=== PATIENT | male | born 1940 | race Caucasian/White ===

== ENCOUNTER 2019-07-29 06:40 | Day surgery (SDC) | payer MEDICARE ==
[2019-07-29] MEDS: TROPICAMIDE 1% OPTH 3 ML BOT ONE ×3 (06:57→07:31)
[2019-07-29] MEDS: KETOROLAC OPTHALMIC 5 ML BOT ONE ×3 (06:57→07:31)
[2019-07-29] MEDS: CYCLOPENTOLATE 2% OPTH 2 ML ONE ×3 (06:57→07:31)
[2019-07-29] MEDS: MOXIFLOXACIN HCL 0.5% 3ML OPTH OPTH ONE ×3 (06:57→07:31)
[2019-07-29] MEDS: PHENYLEPHRINE 10% OPTH 5ML ONE ×3 (06:57→07:31)
[2019-07-29] MEDS ORDERED: Ringers Lactate 1,000 ML IV ONE (07:15)
[2019-07-29] MEDS ORDERED: FENTANYL CITR 100 MCG/2 ML ONE (07:16)
[2019-07-29] MEDS ORDERED: LIDOCAINE 1% MPF 5 ML VIAL ONE (07:16)
[2019-07-29] MEDS ORDERED: PROPOFOL 200 MG/20 ML VIAL IV ONE (07:16)
[2019-07-29] MEDS ORDERED: ALBUTEROL 2.5 MG/3 ML NEB SOL ONE (07:26)
[2019-07-29] MEDS ORDERED: TOBRADEX 0.3-0.1% OPTH OINTMENT ONE (07:26)
[2019-07-29] MEDS ORDERED: EPINEPHRINE/PF 1 MG/ML AMP ONE (07:28)
[2019-07-29] MEDS ORDERED: BSS OPTHALMIC SOL 15 ML BOT OPTH ONE (07:28)
[2019-07-29] MEDS ORDERED: BALANCED SALT IRRIG PLAIN 500 ML BTL IRR ONE (07:28)
[2019-07-29] MEDS ORDERED: POVIDONE-IODINE 5% EYE DROPS ONE (07:29)
[2019-07-29] MEDS ORDERED: DUOVISC 1 KIT OPTH ONE ×2 (07:29→08:13)
[2019-07-29] MEDS ORDERED: ONDANSETRON 4 MG/2 ML VIAL ONE (08:29)
[2019-07-29 09:44] VITALS: BP 138/65; TEMP 97.2; O2SAT 96
--- NOTE | 2019-07-29 19:43 | OP ---
Date of Procedure: 07/29/2019 Surgeon: Scott Wynne MD Preoperative Diagnosis: Visually significant cataract, left eye. Postoperative Diagnosis: Visually significant cataract, left eye. Procedure Performed: Cataract extraction of left eye with placement of intraocular lens. Description Of Procedure: After being properly identified in the preoperative holding area, patient was taken back to the operating room where a time-out was performed. He was then placed under genera l anesthesia. Due to patient's severe scoliosis and neck stenosis, he was unable to be laid flat fortunato n after being anesthetized. Therefore, an extensive neck roll was placed underneath the patient kamlesh galvez approximately 18 inches with the forehead and head then taped to the bed and then the bed placed in reverse Trendelenburg. This still resulted in the patient's head being parallel and still signif icantly superior to the rest of his body, but was in such a manner that allowed the cataract surgery to proceed safely. Patient was thereafter prepped and draped in normal sterile fashion. Grasping th e globe with a pair of 0.12 forceps and a paracentesis wound was made inferiorly and the anterior tico mber filled with Viscoat. Then using a 2.75 mm keratome, a triplanar incision was made for main phac o entry. A continuous curvilinear capsulorrhexis was created using a cystotome and completed with Ut rata forceps. Followed by hydrodissection and hydrodelineation of the lens resulting in his free rot ation. The lens was thereafter removed in a standard divide and conquer technique at approximately 1 0 seconds CDE time. Additional viscoelastic was added and the nucleus disassembled. Total CDE was 1 5.54. Once all 4 quadrants had been removed, the phaco handpiece was exchanged for irrigation aspira tion handpiece and all cortical material was removed and the capsule polished. The intraocular lens, Lonny model SN60WF, power 18.0 diopter, serial #[id number] was loaded inside the cartridge and then implanted into the eye after the eye was filled with additional viscoelastic. Once the lens had bee n inserted, the irrigation aspiration handpiece was used to remove the remaining viscoelastic. Hanhi te having a triplane configuration of the temporal wound architecture, the temporal iris did prolapse on repressurization of the eye, and therefore a single 10-0 nylon suture was placed through the woun d in order to act as additional safety. The globe was thereafter repressurized and the drapes remove d and the patient pressure patched over TobraDex ointment. He was taken to the postoperative holding area in stable condition having tolerated the procedure well. There were no complications. Estimated Blood Loss: None. Specimens: No specimens were sent. Drains: No drains were placed. Implants: Implants are as above. Followup: Patient is to follow up with myself, Dr. Scott Wynne, at the [facility] t omorrow morning. MARINO/VANNESSAL Voice ID: [id number] Report ID: [id number]
== END 2019-07-29 09:47 | disposition home or self-care (01) ==
LOC: OR 06:40
PROVIDERS: ATTEND Ophthalmology
PROC: 08RK3JZ Replacement of Left Lens with Synthetic Substitute, Percutaneous Approach (ICD-10-PCS; principal; 2019-07-29 07:30)
DX: H26.8 Other specified cataract (principal); J44.9 Chronic obstructive pulmonary disease, unspecified; M19.90 Unspecified osteoarthritis, unspecified site
CPT/HCPCS: 66984; J2704; J0171; J3010; J7120; J2405

== ENCOUNTER 2019-08-12 06:25 | Day surgery (SDC) | payer MEDICARE ==
[2019-08-12] MEDS ORDERED: CYCLOPENTOLATE 2% OPTH 2 ML ONE (06:46)
[2019-08-12] MEDS ORDERED: KETOROLAC OPTHALMIC 5 ML BOT ONE (06:46)
[2019-08-12] MEDS ORDERED: PHENYLEPHRINE 10% OPTH 5ML ONE (06:47)
[2019-08-12] MEDS ORDERED: Ringers Lactate 1,000 ML IV ONE (06:47)
[2019-08-12] MEDS ORDERED: MOXIFLOXACIN HCL 0.5% 3ML OPTH OPTH ONE (06:47)
[2019-08-12] MEDS ORDERED: propofoL 200 MG/20 ML VIAL IV ONE (07:06)
[2019-08-12] MEDS ORDERED: FENTANYL CITR 100 MCG/2 ML ONE (07:06)
[2019-08-12] MEDS ORDERED: TROPICAMIDE 1% OPTH 3 ML BOT ONE (07:07)
[2019-08-12] MEDS ORDERED: ONDANSETRON 4 MG/2 ML VIAL ONE (07:07)
[2019-08-12] MEDS ORDERED: dexAMETHasone 4 MG/ML VIAL ONE (07:07)
[2019-08-12] MEDS ORDERED: LIDOCAINE 2% MPF 5 ML VIAL ONE (07:07)
[2019-08-12] MEDS ORDERED: BSS OPTHALMIC SOL 15 ML BOT OPTH ONE (07:07)
[2019-08-12] MEDS ORDERED: HYALURONATE SODIUM 14 MG/ML SYR OPTH ONE (07:08)
[2019-08-12] MEDS ORDERED: BALANCED SALT IRRIG PLAIN 500 ML BTL IRR ONE (07:08)
[2019-08-12] MEDS ORDERED: TOBRADEX 0.3-0.1% OPTH OINTMENT ONE (07:08)
[2019-08-12] MEDS ORDERED: EPINEPHRINE/PF 1 MG/ML AMP ONE (07:08)
[2019-08-12] MEDS ORDERED: DUOVISC 1 KIT OPTH ONE (07:08)
[2019-08-12] MEDS ORDERED: POVIDONE-IODINE 5% EYE DROPS ONE (07:16)
[2019-08-12] MEDS ORDERED: EPHEDRINE SULF 50 MG/ML VIAL ONE (08:23)
[2019-08-12 10:30] VITALS: BP 132/76; TEMP 98; O2SAT 97
--- NOTE | 2019-08-12 20:48 | OP ---
Date of Procedure: 08/12/2019 Surgeon: Scott Wynne MD Preoperative Diagnosis: Visually significant cataract, right eye. Postoperative Diagnosis: Visually significant cataract, right eye. Procedure Performed: Cataract extraction right eye with placement of intraocular lens, right eye und er general anesthesia. Description Of Procedure: After being properly identified in the preoperative holding, the patient w as taken back to the operating room where a time-out was performed. The patient was then positioned in the bed because of his severe scoliosis. Approximately 18 to 20 inches of towels were required un derneath his head as a head roll on top of the normal headrest, which was then taped into position an d then a significant amount of Trendelenburg was required as well. Once the patient was so positione d, we prepped and draped the patient as normal. Because of the extreme amount of Trendelenburg and p osition of the head, I was unable to operate the phaco foot controls with my right foot is normal and therefore had to operate using my left foot, however, no complications resulted from this. Other th an that, the case proceeded in the standard manner. The paracentesis wound was created both in the 1 2 o'clock and 6 o'clock position using a 1.0 mm blade and the anterior chamber filled with Viscoat, t hen grasping the globe with a pair of 0.12 forceps, the main phaco incision wound was made temporally using a 2.75 mm keratome. A continuous curvilinear capsulorrhexis was created using a cystotome and completed with Utrata forceps. Hydrodissection and hydrodelineation were carried out resulting in f ree rotation of the lens nucleus. The lens was thereafter removed in a standard divide and conquer t echnique again being extremely careful using my left foot, but no problems were encountered. Once al l 4 quadrants had been removed, the phaco handpiece was exchanged for bimanual irrigation aspiration handpieces and the remainder of the cortex and epinuclear shell were removed. Once this had been don e, the capsular bag was inflated with additional viscoelastic and the Lonny lens model SN60WF, power 18.5 diopter, serial #[id number] was implanted into the capsular bag. The haptics were left at the 3 and 9 o'clock position and viscoelastic was removed using the irrigation aspiration handpiece. Bec ause of the tendency for the iris prolapse through the incision wound, a single 10-[address] through the main incision wound. The wounds were then hydrated. Again, a small leak superiorly ne cessitated an additional suture at the 12 o'clock paracentesis. Once these 2 sutures were placed, th e globe was again tested for water tightness and the lid speculum and drapes removed and the procedur e concluded. The patient was taken to the postoperative holding area in stable condition having tole rated procedure well. There were no complications. Estimated Blood Loss: None. Specimens: No specimens were sent. Drains: No drains were placed. Implants: Are as above. JPG/MODL Voice ID: [id number] Report ID: [id number]
== END 2019-08-12 10:25 | disposition home or self-care (01) ==
LOC: OR 06:25
PROVIDERS: ATTEND Ophthalmology
PROC: 08RJ3JZ Replacement of Right Lens with Synthetic Substitute, Percutaneous Approach (ICD-10-PCS; principal; 2019-08-12 07:30)
DX: H25.11 Age-related nuclear cataract, right eye (principal)
CPT/HCPCS: 66984; J2704; J0171; J3010; J7120; J2405

== ENCOUNTER 2020-04-24 08:47 | Emergency (ER) | payer MEDICARE, SELFPAY ==
--- OUTSIDE RECORDS SUMMARY | 2020-04-24 09:34 | XMS REPORT | Encounter Summary ---
:1940 Author Care Team Providers Name Role Phone Dr. Lance Bal Primary Care Provider [phone] Lance Bal Jr, MD Primary Care Provider [phone] Reason for Visit Hypercholesterolemia; Mild chronic obstr uctive pulmonary disease; COPD Follow-up; Telemedicine Visit Instructions 1. Hypercholesterolemia 2. Mild chronic obstructive pulm onary disease 3. Osteoarthritis 4. Chronic obstructive lung dise ase COPD Education (VFP) 5. Cigarette smoker advised to quit smoking stopping smoking: care ins tructions deciding about using medic [facility] to quit smoking Discussion Note Completed a telephone visit with idania gautam. Patient report he has enough meds currently and does not need any refills. Patient encouraged to wash hands frequently for 20 seconds, practice social distancin g by stay home and maintaining physical space in public. Patient encouraged to seek medical care if he starts having continues cough, fever and sob. Patient verbalized understanding. Keon Fonseca caregiver [phone]. Plan of Care Reminders Provider Appointments Home on or around Olivia Visit 30 05/04/2020 [facility] None recorded. Referral None recorded. Procedures None recorded. Surgeries None recorded. Imaging None recorded. Medications Name Start Date atorvastatin 40 mg tablet Take 1 tablet every day by oral route. furosemide 20 mg tablet Take 1 tablet every day by oral route. omeprazole 40 mg capsule,delayed release Take 1 capsule every day by oral route. tamsulosin 0.4 mg capsule Take 1 capsule every day by oral route. Medications Administered None recorded. Vitals Height 5 ft 11 in Results Lab Results None recorded. Allergies Code Code System Name Reaction Severity Status Onset NKDA Problems Name Status Onset Date Source Hypercholesterolemia Active 12/21/2019 Mild Chronic Obstructive Pulmonary Disease Active 12/20 Osteoarthritis Active 01/31/2020 Procedures Date Name Performed by Prostatectomy Information not avai lable Prosthetic Arthroplasty of Bilateral Hip s Information not available Vaccine List None recorded. Social History Tobacco Smoking Status Heavy Tobacco Smoker (1 1/2 PPD) Past Encounters 01/31/2020 Hypercholesterolemia; Mild Chronic Obstr uctive Pulmonary Disease; Osteoarthritis; Chronic Obstructive Lung Disease; Cigarette Smoker Olivia Correa, [employer]: [address], [address], [place] [address], Ph. History of Present Illness COPD Initial / Follow Up Reported By: Patient HPI:: Quality: no cough, no shortn ess of breath, no wheezing. COPD Severity and Treatment: COPD Assessme nt Test Score: Less than 10, Acute hospital admissions for COPD in last year: 0, COPD exacerbations in last year: 0. Context: courses of systemic steroids in last year: 0, ED visits for COPD in last year: 0, does p atient use rescue inhaler as prescribed? no, does patient take daily COPD medications as prescribed? No, does patient have trouble affordi ng COPD medications? No, sees a tube fitter no, enrolled i n pulmonary rehabilitation no Note: I confirm that I received verbal consent from the patient for the virtual visit.
This telemedicine encounter was performed using live {{video and audio|audio only because either patient did not have technology or unable to connect due to technical problems*}}.
<b>(for audio only)</b> Total time spent with patient: {{15#| }} minutes. Review of Systems Comprehensive General Adult ROS Reported By: Patient Constitutional: Constitutional: no fever, no night sweats, no significant weight gain, no significant weight loss, no exercise intolerance Eyes: Eyes: no dry eyes, no vision change, no irritation ENMT: Ears: no difficulty hearing, no ear pain. Nose: no frequent nosebleeds, no nose problems , no sinus problems. Mouth/Throat: no sore throat, no bleeding gums, no snoring, no dry mouth, no mouth ulcers, no oral abnorm alities, no teeth problems Cardiovascular: Cardiovascular: no chest mercedes n, no arm pain on exertion, no shortness of breath when wal chau, no shortness of breath when lying down, no palpitations, no known heart murmur, no lightheadedness Respiratory: Respiratory: no cough, no wh eezing, no shortness of breath, no coughing up blood, no sleep apnea Gastrointestinal: Gastrointestinal: no abdomin al pain, no nausea, no vomiting, no constipation, normal appe tite, no diarrhea, not vomiting blood, no dyspepsia, no GERD Genitourinary: Genitourinary: no incontinen ce, no difficulty urinating, no hematuria, no increased freq uency Musculoskeletal: Musculoskeletal: no muscle a ches, no muscle weakness, no arthralgias/joint pain, no b ack pain, no swelling in the extremities Integumentary: Skin: no abnormal mole, no j aundice, no rashes, no laceration Neurologic: Neurologic: no loss of consc iousness, no weakness, no numbness, no seizures, no di zziness, no migraines, no headaches, no tremor Psychiatric: Psych: no depression, no sle ep disturbances, feeling safe in a relationship, no alcohol abu se, no anxiety, no hallucinations, no suicidal thoughts Endocrine: Endocrine: no fatigue Hematologic/Lymphatic: Hematologic/Lymphatic no swo llen glands, no bruising, no excessive bleeding Allergic/Immunologic: Allergy/Immunologic: no runn y nose, no sinus pressure, no itching, no hives, no freque nt sneezing Physical Exam Telemedicine/Virtual Visit Reported By: Patient Constitutional: Level of Distress: NAD. Ambu lation: ; patient use cane Psychiatric: Insight: good judgement"
--- OUTSIDE RECORDS SUMMARY | 2020-04-24 09:34 | XMS REPORT | Summary of Care ---
:1940 Author Organization [facility] Address [address] [place] [address] Care Team Providers Name Role Phone Lance Bal Primary Care Provider Reason for Visit Reason Comments Results Encounter Details Date Type Department Care Team Description 02/03/2020 Telephone [facility] Cardiology- Aby Harris MD Results [place] [address] [facility] [address] [facility], [address] [place] [address] [place] [address] [phone] Allergies No Known Allergiesdocumented as of this encounter (statuses as of 02/03/2020) Medications Medication Sig Dispensed Refills Start Date End Date Status aspirin 81 mg EC tablet Take 1 tablet by 0 9 Active mouth daily. TAMSULOSIN 0.4 mg 24 hr TAKE 1 CAPSULE 30 capsule 1 12/22/2018 Active capsuleIndications: BPH BY MOUTH EVERY with obstruction/lower DAY urinary tract symptoms traMADOL 50 mg Take 1 tablet by 8 tablet 0 12/29/2018 Active tabletIndications: mouth every 8 Benign prostatic (eight) hours as hyperplasia with needed for Pain urinary obstruction (scale 7-10). acetaminophen 500 mg Take 1 tablet by 20 tablet 0 12/29/2018 Active tabletIndications: mouth every 8 Benign prostatic (eight) hours as hyperplasia with needed for Pain. urinary obstruction atorvastatin 40 mg Take 1 tablet by 60 tablet 3 11/18/2019 Active tabletIndications: PAD mouth daily. (peripheral artery disease) FUROSEMIDE 20 mg tablet TAKE 1 TABLET BY 90 tablet 1 0 Active MOUTH EVERY DAY documented as of this encounter (statuses as of 02/03/2020) Active Problems Problem Noted Date Urinary retention 11/27/2018 Overview: Added automatically from request for bhavya chau [id number] Benign prostatic hyperplasia with urinary obstruction 10/12/2018 Overview: Added automatically from request for bhavya chau [id number] documented as of this encounter (statuses as of 02/03/2020) Immunizations Name Administration Dates Next Due Influenza High Dose 08/31/2019 documented as of this encounter Social History Tobacco Use Types Packs/Day Years Used Date Current Every Day Smoker 1 65 Smokeless Tobacco: Never Used Alcohol Use Drinks/Week oz/Week Comments Yes Sex Assigned at Date Recorded Not on file Job Start Date Occupation Industry Not on file Not on file Not on file Travel History Travel Start Travel End No recent travel history available. documented as of this encounter Last Filed Vital Signs Not on filedocumented in this encounter Plan of Treatment Date Type Specialty Care Team Description 05/09/2020 Office Visit Urology Josefina Ahumada, [employer] [address] [facility] [address] [place] [address] [phone] 09/04/2020 Office Visit Cardiology Adithya Harris M D [address] [facility] [address] [place] [address] Health Maintenance Due Date Last Done Comments DTaP,Tdap,and Td Vaccines (1 - Tdap) 1951 Zoster Recombinant Vaccine (SHINGRIX) (1 of 2) 1990 LUNG CANCER SCREEN: Recommended for age 55-80 with 30 1995 + pack year history Medicare Wellness Visit 2005 PNEUMOCOCCAL VACCINES 65+ (1 of 2 - PCV13) 2005 Depression Screening 11/02/2020 11/03/2019 INFLUENZA VACCINE Completed 08/31/2019 documented as of this encounter Results Not on filedocumented in this encounter Insurance Payer Benefit Plan / Subscriber ID Effective Dates Phone Addre ss Type Group [employer] MARGIE HANSON [id number] 2019-Presen Medicare Adv PLUS PLUS t HMO CLASSIC/VALUE documented as of this encounter
--- OUTSIDE RECORDS SUMMARY | 2020-04-24 09:34 | XMS REPORT | Summary of Care ---
:1940 Author Organization [facility] Address [address] [place] [address] Care Team Providers Name Role Phone Lance Bal Primary Care Provider Reason for Visit Reason Comments ULTRASOUND (Routine) Status Reason Specialty Diagnoses / Referred By Referred To Procedures Contact Contact Closed Vascular Surgery Diagnoses PAD (peripheral artery disease) Adithya Harris MD Procedures [facility] [address] [place] [address] [address] [place] [address] Encounter Details Date Type Department Care Team Description 01/28/2020 Wire Web Worker Visit [facility] Adithya Harris MD [address] [place] [address] [address] [place] [address] PAD (peripheral Cardiology- [facility] Vascular Room 1 - artery disease) [address] [place] [address], [address] [place] [address] Allergies No Known Allergiesdocumented as of this encounter (statuses as of 01/28/2020) Medications Medication Sig Dispensed Refills Start Date [...] as of this encounter (statuses as of 01/28/2020) Active Problems Problem Noted Date Urinary retention 11/27/2018 Overview: Added automatically from request for bhavya kandi [id number] Benign prostatic hyperplasia with urinary obstruction 10/12/2018 Overview: Added automatically from request for bhavya kandi [id number] documented as of this encounter (statuses as of 01/28/2020) Immunizations Name Administration Dates Next Due Influenza [...] Description 05/09/2020 Office Visit Urology Josefina Ahumada, [employer] [address] [facility] [address] [place] [address] [phone] 09/04/2020 Office Visit Cardiology Adithya Harris M D [address] [place] [address] [place], [place] [address] [phone] Health Maintenance Due Date Last Done Comments [...] Results Not on filedocumented in this encounter Visit Diagnoses Diagnosis PAD (peripheral artery disease) Unspecified disorders of arteries and ar terioles documented in this encounter Insurance Payer Benefit Plan / Subscriber ID Effective Dates Phone Addre ss Type Group [facility] MARGIE HANSON [id number] 2019-Presen Medicare Adv PLUS PLUS t HMO CLASSIC/VALUE documented as of this encounter
--- NOTE | 2020-04-24 10:54 | RAD REPORT ---
EXAM DESCRIPTION: RAD - Humerus Right - 04/24/2020 10:13 am CLINICAL HISTORY: Right arm pain status post fall FINDINGS: An impacted right humeral neck fracture. No dislocation
--- NOTE | 2020-04-24 10:56 | RAD REPORT ---
EXAM DESCRIPTION: RAD - Hip Left 2 View - 04/24/2020 10:13 am CLINICAL HISTORY: Left hip pain status post injury FINDINGS: No fracture or dislocation is seen. 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
--- NOTE | 2020-04-24 11:04 | EDPHYS ---
Physician Documentation [facility] Name: Juan Gracia Jr Age: 80 yrs Sex: Male : 1940 Arrival Date: 04/24/2020 Time: 08:53 Bed 14 Private MD: ED Physician Andre Garcia HPI: 04/24 10:13 This 80 yrs old Male presents to ER via EMS with complaints of Fall Injury. rn 10:13 Details of fall: The patient fell from an upright position. Onset: The symptoms/episode rn began/occurred just prior to arrival. Associated injuries: The patient sustained right shoulder. Severity of symptoms: At their worst the symptoms were mild, in the emergency department the symptoms are unchanged. The patient has not experienced similar symptoms in the past. Reports walking back to room after using bathroom this AM, missed edge of bed while sitting, reports fell onto right shoulder and is area of pain. No head injury. No LOC, remembers all events. Reports left hip hurts all the time, but more sore today after fall, doesn't feel broken like in past. . Historical: - Allergies: 08:55 No Known Allergies; jr10 - Immunization history:: Adult Immunizations up to date. - Social history:: Smoking status: unknown. - Family history:: not pertinent. - Hospitalizations: : No recent hospitalization is reported. ROS: 10:13 Constitutional: Negative for fever, chills, and weight loss, Eyes: Negative for injury, rn pain, redness, and discharge, Neck: Negative for injury, pain, and swelling, Cardiovascular: Negative for chest pain, palpitations, and edema, Respiratory: Negative for shortness of breath, cough, wheezing, and pleuritic chest pain, Abdomen/GI: Negative for abdominal pain, nausea, vomiting, diarrhea, and constipation, Back: Negative for injury and pain, MS/Extremity: + rigt shoulder and left hip pain Skin: Negative for injury, rash, and discoloration, Neuro: Negative for headache, weakness, numbness, tingling, and seizure. Exam: 10:13 Constitutional: This is a well developed, well nourished patient who is awake, alert, rn and in no acute distress. Head/Face: Normocephalic, atraumatic. Eyes: Periorbital areas with no swelling, redness, or edema. Chest/axilla: Normal chest wall appearance and motion. Nontender with no deformity. No lesions are appreciated. Cardiovascular: Regular rate and rhythm. No pulse deficits. Respiratory: No increased work of breathing, no retractions or nasal flaring. Abdomen/GI: soft, non-tender Back: No spinal tenderness. No costovertebral tenderness. Full range of motion. MS/ Extremity: Pulses equal, no cyanosis. Neurovascular intact. + swelling and tenderness right proximal humerus, no open wounds. + mild pain with active and passive ROM left hip. Neuro: Awake and alert, GCS 15, oriented to person, place, and situation. Cranial nerves II-XII grossly intact. Motor strength 4/5 in all extremities. Sensory grossly intact. Vital Signs: 08:53 BP 122 / 80; Pulse 101; Resp 20; Temp 98.2; Pulse Ox 99% on R/A; Pain 8/10; jr10 10:07 BP 137 / 72; Pulse 92; Resp 18; Pulse Ox 98% on R/A; jr10 11:20 BP 105 / 74; Pulse 97; Resp 18; Pulse Ox 100% on R/A; Pain 0/10; jr10 Efe Coma Score: 09:00 Eye Response: spontaneous(4). Verbal Response: oriented(5). Motor Response: obeys jr10 commands(6). Total: 15. Trauma Score (Adult): 09:00 Eye Response: spontaneous(1); Verbal Response: oriented(1); Motor Response: obeys jr10 commands(2); Systolic BP: > 89 mm Hg(4); Respiratory Rate: 10 to 29 per min(4); Efe Score: 15; Trauma Score: 12 MDM: 09:05 Patient medically screened. rn 11:01 Differential diagnosis: contusion, fracture. Data reviewed: vital signs, nurses notes, rn radiologic studies, plain films, and as a result, I will discharge patient. Counseling: I had a detailed discussion with the patient and/or guardian regarding: the historical points, exam findings, and any diagnostic results supporting the discharge/admit diagnosis, radiology results, the need for outpatient follow up, to return to the emergency department if symptoms worsen or persist or if there are any questions or concerns that arise at home. Response to treatment: the patient's symptoms have mildly improved after treatment, and as a result, I will discharge patient. Special discussion: I discussed with the patient/guardian in detail that at this point there is no indication for admission to the hospital. It is understood, however, that if the symptoms persist or worsen the patient needs to return immediately for re-evaluation. Based on the history and exam findings, there is no indication for further emergent testing or inpatient evaluation. I discussed with the patient/guardian the need to see the orthopedic surgeon for further evaluation of the symptoms. 04/24 09:12 Order name: XRAY Hip LEFT 2 view; Complete Time: 11: rn 04/24 09:12 Order name: XRAY Humerus RIGHT; Complete Time: 11: rn 04/24 09:54 Order name: Sling; Complete Time: 10:19 rn Administered Medications: 11:20 Drug: [place] 5 mg-325 mg 1 tabs Route: PO; jr10 11:34 Follow up: Response: No adverse reaction jr10 11:20 Drug: Motrin 800 mg Route: PO; jr10 11:34 Follow up: Response: No adverse reaction jr10 Disposition: 04/24/20 11:03 Discharged to Home. Impression: Displaced transverse fracture of shaft of humerus, right arm. - Condition is Stable. - Discharge Instructions: Humerus Fracture Treated With Immobilization, How to Use a Sling. - Prescriptions for Tylenol- Codeine #3 300-30 mg Oral Tablet - take 1 tablet by ORAL route every 6 hours As needed; 15 tablet. - Medication Reconciliation Form, Thank You Letter, Antibiotic Education, Prescription Opioid Use form. - Follow up: Rodrick Alston MD; When: 5 - 6 days; Reason: Recheck today's complaints, Re-evaluation by your physician. - Problem is new. - Symptoms have improved. Signatures: Dispatcher [employer] EDMS Andre Garcia MD MD rn Rivera, Jessica, RN RN jr10 Corrections: (The following items were deleted from the chart) 11:45 11:03 04/24/2020 11:03 Discharged to Home. Impression: Displaced transverse fracture of jr10 shaft of humerus, right arm. Condition is Stable. Forms are Medication Reconciliation Form, Thank You Letter, Antibiotic Education, Prescription Opioid Use. Follow up: Dr. Rodrick Alston; When: 5 - 6 days; Reason: Recheck today's complaints, Re-evaluation by your physician. Problem is new. Symptoms have improved. rn
--- NOTE | 2020-04-24 11:04 | ER ---
Nurse's Notes [facility] Name: Juan Gracia Jr Age: 80 yrs Sex: Male : 1940 Arrival Date: 04/24/2020 Time: 08:53 Bed 14 Private MD: Diagnosis: Displaced transverse fracture of shaft of humerus, right arm Presentation: 04/24 08:53 Chief complaint: Patient states: pt presents via EMS with c/o right shoulder pain s/p jr10 mechanical fall at approx 0100 this morning; moderate swelling not right arm with decreased ROM. Coronavirus screen: Client denies travel out of the [place] in the last 14 days. At this time, the client does not indicate any symptoms associated with coronavirus-19. Ebola Screen: No symptoms or risks identified at this time. Initial Sepsis Screen: Does the patient meet any 2 criteria? No. Patient's initial sepsis screen is negative. Does the patient have a suspected source of infection? No. Patient's initial sepsis screen is negative. Risk Assessment: Do you want to hurt yourself or someone else? Patient reports no desire to harm self or others. Onset of symptoms was April 24, 2020. 08:53 Method Of Arrival: EMS jr10 08:53 Acuity: FELICIA 3 jr10 Historical: - Allergies: 08:55 No Known Allergies; jr10 - Immunization history:: Adult Immunizations up to date. - Social history:: Smoking status: unknown. - Family history:: not pertinent. - Hospitalizations: : No recent hospitalization is reported. Screenin:57 Abuse screen: Denies threats or abuse. Denies injuries from another. Nutritional jr10 screening: No deficits noted. Tuberculosis screening: No symptoms or risk factors identified. Fall Risk Fall in past 12 months (25 points). No secondary diagnosis (0 pts). No IV (0 pts). Ambulatory Aid- Crutches/Cane/Walker (15 pts). Gait- Weak (10 pts.). Mental Status- Oriented to own ability (0 pts). Primary Survey: 09:00 NO uncontrolled hemorrhage observed. Breathing/Chest: Respiratory pattern: regular, jr10 Respiratory effort: spontaneous, unlabored, Chest inspection: symmetrical rise and fall of the chest. Circulation: Pulses: palpable bilateral radial, brachial, femoral, popliteal, posterior tibial and and dorsalis pedis arteries.. Disability Alert. Exposure/Environment: All clothing and personal items were removed. Secondary Survey: 09:00 Musculoskeletal: Range of motion: limited in right shoulder Swelling present in jr10 anterior aspect of right shoulder, right bicep and posterior aspect of right shoulder. Assessment: 08:55 Pain: Complains of pain in anterior aspect of right shoulder, right bicep and posterior jr10 aspect of right shoulder Pain currently is 8 out of 10 on a pain scale. Quality of pain is described as aching, Pain began at approx 0100 this AM Is continuous, Aggravated by increased activity. Neuro: No deficits noted. Level of Consciousness is awake, alert, obeys commands, Oriented to person, place, time, situation, Appropriate for age. Cardiovascular: No deficits noted. Respiratory: No deficits noted. Airway is patent Respiratory effort is even, unlabored, Respiratory pattern is regular, symmetrical. GI: No deficits noted. No signs and/or symptoms were reported involving the gastrointestinal system. : No deficits noted. No signs and/or symptoms were reported regarding the genitourinary system. EENT: No deficits noted. No signs and/or symptoms were reported regarding the EENT system. Derm: Bruising that is dark purple, on anterior aspect of right shoulder. Musculoskeletal: Circulation, motion, and sensation intact. Capillary refill < 3 seconds, Range of motion: limited in right shoulder Swelling present in anterior aspect of right shoulder, right bicep and posterior aspect of right shoulder. Vital Signs: 08:53 BP 122 / 80; Pulse 101; Resp 20; Temp 98.2; Pulse Ox 99% on R/A; Pain 8/10; jr10 10:07 BP 137 / 72; Pulse 92; Resp 18; Pulse Ox 98% on R/A; jr10 11:20 BP 105 / 74; Pulse 97; Resp 18; Pulse Ox 100% on R/A; Pain 0/10; jr10 Efe Coma Score: 09:00 Eye Response: spontaneous(4). Verbal Response: oriented(5). Motor Response: obeys jr10 commands(6). Total: 15. Trauma Score (Adult): 09:00 Eye Response: spontaneous(1); Verbal Response: oriented(1); Motor Response: obeys jr10 commands(2); Systolic BP: > 89 mm Hg(4); Respiratory Rate: 10 to 29 per min(4); Efe Score: 15; Trauma Score: 12 ED Course: 08:53 Patient arrived in ED. jr10 08:54 Triage completed. jr10 08:55 Arm band placed on. jr10 08:57 Patient has correct armband on for positive identification. Placed in gown. Bed in low jr10 position. Call light in reach. Side rails up X2. Pulse ox on. NIBP on. 08:58 No provider procedures requiring assistance completed. jr10 09:05 Andre Garcia MD is Attending Physician. rn 09:13 Isabelle Bateman, [place] is Primary Nurse. jr10 10:13 XRAY Hip LEFT 2 view In Process Unspecified. EDMS 10:13 XRAY Humerus RIGHT In Process Unspecified. EDMS 10:19 Patient did not have IV access during this emergency room visit. jr10 10:19 Sling \T\ swathe to right arm. jr10 11:02 Rodrick Alston MD is Referral Physician. rn Administered Medications: 11:20 Drug: [place] 5 mg-325 mg 1 tabs Route: PO; jr10 11:34 Follow up: Response: No adverse reaction jr10 11:20 Drug: Motrin 800 mg Route: PO; jr10 11:34 Follow up: Response: No adverse reaction jr10 Output: 11:00 Urine: 250ml (Voided); Total: 250ml. jr10 Outcome: 11:03 Discharge ordered by . rn 11:43 Discharged to home via wheelchair. jr10 11:43 Condition: improved 11:43 Discharge instructions given to patient, Instructed on discharge instructions, follow up and referral plans. Demonstrated understanding of instructions, follow-up care, medications, Prescriptions given X 1. 11:45 Patient left the ED. jr10 Signatures: Dispatcher [employer] EDMS Andre Garcia MD MD rn Rivera, Jessica, RN RN jr10
[2020-04-24] MEDS ORDERED: HYDROCODONE/APAP 5/325 MG TAB ONE (11:24)
[2020-04-24] MEDS ORDERED: IBUPROFEN 400 MG TAB ONE (11:24)
[2020-04-27 07:24] VITALS: TEMP 98.2
[2020-04-27 07:26] VITALS: BP 105/74; O2SAT 100
== END 2020-04-24 11:45 | disposition home or self-care (01) ==
LOC: ER 08:47
DX: S42.321A Displaced transverse fracture of shaft of humerus, right arm, initial encounter for closed fracture (principal); M25.552 Pain in left hip; W06.XXXA Fall from bed, initial encounter; Y93.89 Activity, other specified; Y92.9 Unspecified place or not applicable
CPT/HCPCS: 99284

== ENCOUNTER 2021-05-23 16:56 | Inpatient (IN) | payer OTHER ==
[2021-05-23] MEDS ORDERED: Ringers Lactate 1,000 ML IV ONE ×2 (17:35→18:30)
--- NOTE | 2021-05-23 17:49 | RAD REPORT ---
EXAM DESCRIPTION: RAD - Chest Single View - 05/23/2021 5:36 pm CLINICAL HISTORY: DYSPNEA Chest pain. COMPARISON: CHEST SINGLE VIEW dated 04/13/2013; CHEST SINGLE VIEW dated 06/27/2010 FINDINGS: Portable technique limits examination quality. Moderate opacification of the right hemithorax is noted likely a combination of airspace consolidatio n/pneumonia and pleural effusion. The left lung is grossly clear. The heart is upper limit of normal in size.
[2021-05-23 17:51] LABS: Protime INR 1.29
[2021-05-23 17:52] LABS: Absolute Lymphocytes (CBC) 1.4 K/uL (0.7-4.9); Basophils % 0.1 % (0-1.3); Hematocrit 38.1 % (39.6-49.0); Lymphocytes % 3.3 % (15.3-44.8); MPV 8.6 fL (7.6-11.3); RBC Red Blood Cell Count 4.51 M/uL (4.33-5.43)
[2021-05-23 18:03] LABS: ALT/SGPT 15 U/L (12-78); AST/SGOT 18 U/L (15-37); Albumin 2.4 g/dL (3.4-5.0); Alkaline Phosphatase 79 U/L (45-117); BUN Blood Urea Nitrogen 17 mg/dL (7-18); Bicarbonate 28 mmol/L (21-32); Bilirubin Direct 0.7 mg/dL (0-0.2); Bilirubin Total 1.2 mg/dL (0.2-1.0); Glucose Level 124 mg/dL (74-106); Magnesium 1.5 mg/dL (1.8-2.4); NT PRO-BNP 1497 pg/mL (<450); Protein, Total 7.2 g/dL (6.4-8.2); Sodium Level 142 mmol/L (136-145); Thyroid Stimulating Hormone 0.603 uIU/mL (0.360-3.740); Troponin (Emerg Dept Use Only) 0.04 ng/mL (0.0-0.045)
[2021-05-23 18:05] LABS: Urine Blood 1+ (Negative); Urine Glucose Negative (Negative); Urine Protein 1+ (Negative); Urine Specific Gravity 1.025 (1.005-1.030)
[2021-05-23 18:19] LABS: Urine Bacteria <20 /HPF (NONE SEEN); Urine RBC <5 /HPF (NONE SEEN)
[2021-05-23] MEDS ORDERED: CEFTRIAXONE 1000 MG/VIAL ONE (18:29)
[2021-05-23] MEDS ORDERED: Levofloxacin 750mg IV 750 MG/150 ML BAG IV ONE (18:30)
[2021-05-23] MEDS ORDERED: METOPROLOL TARTRATE 5 MG/5 ML INJ IV ONE (18:30)
--- NOTE | 2021-05-23 18:34 | ER ---
Nurse's Notes [facility] Name: Juan Gracia Jr Age: 81 yrs Sex: Male : 1940 Arrival Date: 05/23/2021 Time: 16:56 Bed 27 Private MD: Diagnosis: Severe sepsis with septic shock;Pneumonia, unspecified organism;Hypomagnesemia;Supraventricular tachycardia Presentation: 05/23 17:02 Chief complaint: EMS states: toned out for generalized weakness. Family reports pt is ld1 no longer able to take care of himself, not eating and incontinent X 2 days. Coronavirus screen: At this time, the client does not indicate any symptoms associated with coronavirus-19. Ebola Screen: No symptoms or risks identified at this time. Initial Sepsis Screen: Does the patient meet any 2 criteria? RR > 20 per min. HR > 90 bpm. Yes Does the patient have a suspected source of infection? No. Patient's initial sepsis screen is negative. Risk Assessment: Do you want to hurt yourself or someone else? Patient reports no desire to harm self or others. Onset of symptoms was May 23, 2021. 17:02 Method Of Arrival: EMS: [facility] ld1 17:02 Acuity: FELICIA 3 ld1 Triage Assessment: 17:05 General: Appears in no apparent distress. uncomfortable, Behavior is calm, cooperative, ld1 appropriate for age. Pain: Denies pain. EENT: No signs and/or symptoms were reported regarding the EENT system. Neuro: Level of Consciousness is awake, alert, obeys commands, Oriented to person, place, time, situation, Appropriate for age. Cardiovascular: Capillary refill < 3 seconds Patient's skin is warm and dry. Rhythm is SVT. Respiratory: Airway is patent Respiratory effort is even, unlabored, Respiratory pattern is regular, symmetrical. GI: Abdomen is flat, non-distended. GI: Parent/caregiver reports the patient having intolerance of food, intolerance of fluids. : Reports incontinence. Derm: No signs and/or symptoms reported regarding the dermatologic system. Musculoskeletal: No signs and/or symptoms reported regarding the musculoskeletal system. 17:05 General: Smells of Pt was brought by EMS. Upon arrival pt smelt of urine and feces. ld1 Brief was disintegrating, appeared to have been on pt for several days. Pt claimed caregiver takes care of him at home. Due to pt dirty brief, raw skin was noted on buttocks. . Historical: - Allergies: 17:05 No Known Allergies; ld1 - Home Meds: 17:05 aspirin 81 mg Oral cpDR [Active]; furosemide 40 mg/5 mL (8 mg/mL) Oral soln [Active]; ld1 Flomax 0.4 mg Oral cap [Active]; omeprazole 10 mg Oral cpDR [Active]; Iron CR Oral [Active]; atorvastatin 10 mg oral tab [Active]; - PMHx: 17:05 None; ld1 - PSHx: 17:05 None; ld1 - Immunization history:: Adult Immunizations up to date. - Social history:: Smoking status: Patient denies any tobacco usage or history of. Screenin:12 Abuse screen: Denies threats or abuse. Denies injuries from another. Nutritional ld1 screening: No deficits noted. Tuberculosis screening: No symptoms or risk factors identified. Fall Risk None identified. Assessment: 17:12 Reassessment: See triage assessment. ld1 17:46 Reassessment: Patient appears in no apparent distress at this time. Patient and/or ld1 family updated on plan of care and expected duration. Pain level reassessed. Patient is alert, oriented x 3, equal unlabored respirations, skin warm/dry/pink. 18:36 Reassessment: Patient appears in no apparent distress at this time. Patient and/or ld1 family updated on plan of care and expected duration. Pain level reassessed. Patient denies pain at this time. 19:15 Reassessment: Pt is resting in bed with eyes closed, IV fluids are infusing without jb4 difficulty. Respirations are even and unlabored. 20:15 Reassessment: Patient appears in no apparent distress at this time. Patient and/or jb4 family updated on plan of care and expected duration. Pain level reassessed. Patient is alert, oriented x 3, equal unlabored respirations, skin warm/dry/pink. 21:15 Reassessment: Pt is resting in bed with eyes closed, respirations are even and jb4 unlabored with no s/s of pain or distress noted. 22:15 Reassessment: Patient appears in no apparent distress at this time. No changes from jb4 previously documented assessment. Patient and/or family updated on plan of care and expected duration. Pain level reassessed. Vital Signs: 17:02 BP 107 / 58; Pulse 131; Resp 22; Temp 98.9(TE); Pulse Ox 88% on R/A; Weight 54.43 kg; ld1 Height 6 ft. 1 in. (185.42 cm); Pain 0/10; 17:46 BP 135 / 64; Pulse 159; Resp 22; Pulse Ox 98% on 3 lpm NC; ld1 18:36 BP 118 / 57; Pulse 89; Resp 20; Pulse Ox 99% on 3 lpm NC; Pain 0/10; ld1 19:33 BP 112 / 66; Pulse 93; Resp 20; Pulse Ox 100% ; ea 20:30 BP 94 / 52; Pulse 104; Resp 18; Pulse Ox 100% on 3 lpm NC; jb4 21:30 BP 101 / 67; Pulse 108; Resp 20; Pulse Ox 99% on 3 lpm NC; jb4 22:30 BP 79 / 57; Pulse 111; Resp 20; Pulse Ox 93% on 3 lpm NC; jb4 22:45 BP 92 / 47; Pulse 100; Resp 21; Pulse Ox 98% on 3 lpm NC; jb4 17:02 Body Mass Index 15.83 (54.43 kg, 185.42 cm) ld1 22:30 Hospitalist notified, see MAR for orders. jb4 ED Course: 16:56 Patient arrived in ED. ds1 17:05 Triage completed. ld1 17:05 Arm band placed on left wrist. ld1 17:12 [facility] jr8 17:12 Lebron Ochoa MD is Attending Physician. jr8 17:12 Patient has correct armband on for positive identification. Placed in gown. Bed in low ld1 position. Call light in reach. Side rails up X2. doormaker on. Pulse ox on. NIBP on. Door closed. Noise minimized. Warm blanket given. 17:12 No provider procedures requiring assistance completed. ld1 17:15 Inserted saline lock: 20 gauge in right upper arm, using aseptic technique. Blood ss collected. 17:[address] [facility] 17:25 Initial lab(s) drawn, by ED staff, sent to lab. EKG done, by ED staff, reviewed by Jonathan NELSON. 17:[address] [facility] 17:26 Lactate Sent. 5 17:26 Blood Culture Adult ([address]) Sent[address] [facility] 17:26 Basic Metabolic Panel Sent. [facility] 17:26 CBC with Diff Sent. [facility] 17:[address] [facility] 17:[address] [facility] 17:27 NT PRO-BNP Sent. [facility] 17:27 PT-INR Sent. [facility] 17:27 Troponin (emerg Dept Use Only) Sent. mh 17:30 Chiu cath inserted, using sterile technique, 18 Fr., by wv, balloon inflated, to ld1 gravity drainage, urine specimen collected. 17:36 XRAY Chest (1 view) In Process Unspecified. EDMS 18:03 Urine Microscopic Only Sent. ld1 18:31 Pedro Pablo Caruso DO is Hospitalizing Provider. jr8 18:50 CT Chest Wo Con In Process Unspecified. EDMS 21:30 Patient admitted, IV remains in place. jb4 23:06 Alea Metzger RN is Primary Nurse. ea 05/26 10:04 Primary Nurse role handed off by Alea Metzger RN tw5 10:04 Maranda Morton is Primary Nurse. tw5 05/28 06:55 Primary Nurse role handed off by Maranda Morton bd 07:17 Belen Pemberton, [place] is Primary Nurse. oh 19:58 Primary Nurse role handed off by Belne Pemberton, [place] tt3 05/30 07:09 Hill Her, [place] is Primary Nurse. ch5 Administered Medications: 05/23 17:21 Drug: Ringers - Lactated Ringers Solution 1000 ml Route: IV; Rate: bolus; Site: right ld1 antecubital; 05/25 23:15 Follow up: IV Status: Completed infusion bs2 05/23 18:05 Drug: Lopressor (metoprolol) 5 mg Route: IVP; Site: right antecubital; ld1 18:10 Drug: Lopressor (metoprolol) 5 mg Route: IVP; Site: right antecubital; ld1 18:15 Drug: Lopressor (metoprolol) 5 mg Route: IVP; Site: right antecubital; ld1 18:34 Follow up: Response: No adverse reaction ld1 18:15 Drug: Rocephin (cefTRIAXone) 1 grams Route: IV; Rate: calculated rate; Site: right ld1 antecubital; 18:33 Follow up: Response: No adverse reaction; IV Status: Completed infusion; IV Intake: [id number] 18:33 Drug: LevaQUIN (levofloxacin) 750 mg Volume: 150 ml; Route: IVPB; Infused Over: 90 ld1 mins; Site: right antecubital; 20:03 Follow up: Response: No adverse reaction; IV Status: Completed infusion; IV Intake: jb4 150ml 18:33 Drug: Ringers - Lactated Ringers Solution 1000 ml Route: IV; Rate: bolus; Site: right ld1 antecubital; 19:30 Follow up: Response: No adverse reaction; IV Status: Completed infusion; IV Intake: jb4 1000ml 20:40 Drug: Magnesium Sulfate 2 grams Route: IVPB; Infused Over: 2 hrs; Site: right ea antecubital; 22:40 Follow up: Response: No adverse reaction; IV Status: Completed infusion; IV Intake: jb4 200ml 22:45 Drug: NS 0.9% 500 ml Route: IV; Rate: bolus; Site: left antecubital; jb4 05/25 23:14 Follow up: IV Status: Completed infusion bs2 22:30 Drug: Heparin (DVT/PE Drip) 18 units/kg/hr - (HEParin 68652 units, D5W 500 ml) bs2 {Co-Signature: kcLee Ann (Makenna Fofana.} Route: IV; Rate: 18 mcg/kg/min; Site: right upper arm; 05/26 04:55 Follow up: Rate change 1100 units/hr; 3,000 unit bolus given per last PTT draw, rate bs2 increased to 1100 units per hour Intake: 05/23 18:33 IV: 10ml; Total: 10ml. ld1 19:30 IV: 1000ml; Total: 1010ml. jb4 20:03 IV: 150ml; Total: 1160ml. jb4 22:40 IV: 200ml; Total: 1360ml. jb4 Outcome: 18:32 Decision to Hospitalize by Provider. jr8 22:57 Admitted to ER Hold. Please see [facility] for further documentation. jb4 22:57 Condition: stable 22:57 Discharge instructions given to patient, Instructed on the need for admit, Demonstrated understanding of instructions. 06/02 21:11 Patient left the ED. em Signatures: Dispatcher [employer] EDMS Desire Villafuerte French Moslye, RN RN em Shania Mayorga ds1 Elsi Reese, [place] RN Jonathan Treviño PA PA jr8 Hilton Verduzco RN RN jb4 Ariana Walls [facility] Alea Metzger, RN RN Junaid Gannon tt3 Stella Starkey RN RN ld1 Kandice Kaur RN RN bs2 Hill Her, RN RN 5 Belen Pemberton RN RN oh Wood, Tiffany 5 Makenna Farr kc4 Corrections: (The following items were deleted from the chart) 05/23 17:31 17:26 T4 FREE+C.LAB.BRZ drawn and sent. [facility] EDMS 17:31 17:26 THYROID STIMULAT HORMONE+C.LAB.BRZ drawn and sent. [facility] EDMS 19:44 19:05 CORONAVIRUS+MR.LAB.BRZ drawn and sent. ld1 EDMS 22:57 20:30 BP 94 / 52; Pulse 104bpm; Resp 18bpm; Pulse Ox 100% RA; jb4 jb4 22:57 21:30 BP 101 / 67; Pulse 108bpm; Resp 20bpm; Pulse Ox 99% RA; jb4 jb4 05/26 05:13 10 22:30 Heparin (DVT/PE Drip) 18 units/kg/hr - (HEParin 94093 units, D5W 500 ml) IV bs2 at 18 mcg/kg/min in PICC bs2 05/26 05:13 05:11 Rate change 3000 bolus bs2 bs2
--- NOTE | 2021-05-23 18:34 | EDPHYS ---
Physician Documentation [facility] Name: Juan Gracia Jr Age: 81 yrs Sex: Male : 1940 Arrival Date: 05/23/2021 Time: 16:56 Bed 27 Private MD: ED Physician Lebron Ochoa HPI: 05/23 18:26 This 81 yrs old Male presents to ER via EMS with complaints of General jr8 Weakness. 18:26 This is an 81-year-old male patient is brought in by EMS after family had called for jr8 general weakness and decline in state. Family stated that he is no longer able to take care of himself and that he had had a decrease in eating and drinking habits as well. Patient currently without any significant complaint at this time. Severity of symptoms: At their worst the symptoms were moderate in the emergency department the symptoms are unchanged. It is unknown whether or not the patient has had similar symptoms in the past. The patient has not recently seen a physician. Historical: - Allergies: 17:05 No Known Allergies; ld1 - Home Meds: 17:05 aspirin 81 mg Oral cpDR [Active]; furosemide 40 mg/5 mL (8 mg/mL) Oral soln [Active]; ld1 Flomax 0.4 mg Oral cap [Active]; omeprazole 10 mg Oral cpDR [Active]; Iron CR Oral [Active]; atorvastatin 10 mg oral tab [Active]; - PMHx: 17:05 None; ld1 - PSHx: 17:05 None; ld1 - Immunization history:: Adult Immunizations up to date. - Social history:: Smoking status: Patient denies any tobacco usage or history of. ROS: 18:26 Eyes: Negative for injury, pain, redness, and discharge, ENT: Negative for injury, jr8 pain, and discharge, Neck: Negative for injury, pain, and swelling, Cardiovascular: Negative for chest pain, palpitations, and edema, Respiratory: Negative for shortness of breath, cough, wheezing, and pleuritic chest pain, Abdomen/GI: Negative for abdominal pain, nausea, vomiting, diarrhea, and constipation, Back: Negative for injury and pain, MS/Extremity: Negative for injury and deformity, Skin: Negative for injury, rash, and discoloration, Neuro: Negative for headache, numbness, tingling, and seizure. 18:26 Constitutional: Positive for fatigue, malaise. Exam: 18:26 ENT: Nares patent. No nasal discharge, no septal abnormalities noted. Oropharynx with jr8 no redness, swelling, or masses, exudates, or evidence of obstruction, uvula midline. Mucous membranes dry. Neck: Trachea midline, no thyromegaly or masses palpated, and no cervical lymphadenopathy. Supple, full range of motion without nuchal rigidity, or vertebral point tenderness. No Meningismus. 18:26 Skin: Warm, dry with normal turgor. Normal color with no rashes, no lesions, and no evidence of cellulitis. MS/ Extremity: Pulses equal, no cyanosis. Neurovascular intact. Full, normal range of motion. Neuro: Awake and alert, GCS 15, oriented to person, place, time, and situation. Motor strength 5/5 in all extremities. Sensory grossly intact. 18:26 Constitutional: The patient appears alert, awake, frail, smells of urine, unkempt. 18:26 Cardiovascular: Rate: tachycardic, Rhythm: irregular, Pulses: Pulses are 2+ in right radial artery and left radial artery. Heart sounds: normal, normal S1and S2, no S3 or S4, no murmur, no rub, no gallop, Edema: is not appreciated. 18:26 Respiratory: the patient does not display signs of respiratory distress, Respirations: tachypnea, that is mild, Breath sounds: decreased breath sounds, that are mild, are heard in the right upper lobe and right middle lobe, rhonchi, that are mild, are heard in the right upper lobe and right middle lobe. Vital Signs: 17:02 BP 107 / 58; Pulse 131; Resp 22; Temp 98.9(TE); Pulse Ox 88% on R/A; Weight 54.43 kg; ld1 Height 6 ft. 1 in. (185.42 cm); Pain 0/10; 17:46 BP 135 / 64; Pulse 159; Resp 22; Pulse Ox 98% on 3 lpm NC; ld1 18:36 BP 118 / 57; Pulse 89; Resp 20; Pulse Ox 99% on 3 lpm NC; Pain 0/10; ld1 19:33 BP 112 / 66; Pulse 93; Resp 20; Pulse Ox 100% ; ea 20:30 BP 94 / 52; Pulse 104; Resp 18; Pulse Ox 100% on 3 lpm NC; jb4 21:30 BP 101 / 67; Pulse 108; Resp 20; Pulse Ox 99% on 3 lpm NC; jb4 22:30 BP 79 / 57; Pulse 111; Resp 20; Pulse Ox 93% on 3 lpm NC; jb4 22:45 BP 92 / 47; Pulse 100; Resp 21; Pulse Ox 98% on 3 lpm NC; jb4 17:02 Body Mass Index 15.83 (54.43 kg, 185.42 cm) ld1 22:30 Hospitalist notified, see MAR for orders. jb4 MDM: 17:12 Patient medically screened. jr8 18:26 Data reviewed: vital signs, nurses notes, lab test result(s), EKG, radiologic studies, jr8 plain films. Data interpreted: Pulse oximetry: on room air is 88 %. Interpretation: hypoxia. Counseling: I had a detailed discussion with the patient and/or guardian regarding: the historical points, exam findings, and any diagnostic results supporting the discharge/admit diagnosis, lab results, radiology results, the need for further work-up and treatment in the hospital. 06/02 18:14 ED course: Dr. bee requested intubation despite ABG looking ok, normal CO2. rn Evaluated patient and pt watching basketball game, waving, wide awake, and comfortable. Given GCS 15, normal mental status, comfortable on BIPAP, ABG, will not currently intubate as cannot be justified at this time.. 18:31 ED course: Spoke with Dr. Bee, and insistent on intubation due to PO2 of 55 and rn for safety of patient for transport. Consulted with Dr. Huff, decision made to intubate for safety of patient during transport. . 18:48 ED course: In evaluating patient for intubation, patient with severe kyphosis and rn unable to obtain good positioning for intubation. Patient very stiff neck and in flexed position with the inability to extend neck. Anticipate difficult airway due to positioning. We facetimed with Dr. Bee to show him situation and states if we can transport with BiPAP or CPAP with 100% and EMS comfortable then we can hold off on intubation currently. Entire time patient wide-awake and asking what we were doing and answering all questions. Current O2 saturation 92%. 05/23 17:13 Order name: Basic Metabolic Panel; Complete Time: 18:24 8 05/23 17:13 Order name: CBC with Diff; Complete Time: 21:49 8 05/23 17:13 Order name: LFT's; Complete Time: 18:24 8 05/23 17:13 Order name: Magnesium; Complete Time: 18:24 8 05/23 17:13 Order name: NT PRO-BNP; Complete Time: 18:24 [facility] 05/23 17:13 Order name: PT-INR; Complete Time: 18:00 [facility] 05/23 17:13 Order name: Troponin (emerg Dept Use Only); Complete Time: 18:24 8 05/23 17:17 Order name: Blood Culture Adult (2); Complete Time: 17:53 [facility] 05/23 17:17 Order name: Lactate; Complete Time: 17:58 [facility] 05/23 17:17 Order name: Procal; Complete Time: 18:24 [facility] 05/23 17:21 Order name: Urine Microscopic Only; Complete Time: 18:24 [facility] 05/23 17:31 Order name: T4 Free; Complete Time: 18:24 [facility] 05/23 17:31 Order name: Thyroid Stimulating Hormone; Complete Time: 18:24 [facility] 05/23 18:05 Order name: Urine Dipstick-Ancillary; Complete Time: 18:24 [facility] 05/23 20:47 Order name: SARS-COV-2 RT PCR; Complete Time: 21:09 [facility] 05/23 21:48 Order name: Manual Differential; Complete Time: 21:49 MS 05/24 03:33 Order name: Lactate Sepsis 2 HR Follow-up; Complete Time: 06:13 EDMS 05/24 04:11 Order name: CBC with Automated Diff; Complete Time: 06:13 EDMS 05/24 05:01 Order name: Comprehensive Metabolic Panel; Complete Time: 06:13 EDMS 05/24 05:02 Order name: Lipid Profile; Complete Time: 06:13 EDMS 05/24 05:02 Order name: Magnesium; Complete Time: 06:13 EDMS 05/24 05:02 Order name: Thyroid Stimulating Hormone; Complete Time: 06:13 EDMS 05/25 04:27 Order name: CBC with Automated Diff; Complete Time: 08:02 EDMS 05/25 04:37 Order name: Comprehensive Metabolic Panel; Complete Time: 08:02 EDMS 05/25 04:37 Order name: Magnesium; Complete Time: 08:02 EDMS 05/25 11:53 Order name: Vancomycin Level Trough; Complete Time: 12:02 EDMS 05/25 20:16 Order name: Protime (+INR); Complete Time: 10:57 EDMS 05/25 20:16 Order name: PTT, Activated Partial Thromb; Complete Time: 10:57 EDMS 05/26 02:50 Order name: CBC with Automated Diff; Complete Time: 10:57 EDMS 05/26 02:58 Order name: PTT, Activated Partial Thromb; Complete Time: 10:57 EDMS 05/26 03:07 Order name: Comprehensive Metabolic Panel; Complete Time: 10:57 EDMS 05/26 03:07 Order name: Magnesium; Complete Time: 10:57 EDMS 05/26 10:49 Order name: PTT, Activated Partial Thromb; Complete Time: 10:57 EDMS 05/26 14:56 Order name: PTT, Activated Partial Thromb; Complete Time: 10:57 EDMS 05/26 18:24 Order name: PTT, Activated Partial Thromb; Complete Time: 10:57 EDMS 05/27 00:32 Order name: Vancomycin Level Trough; Complete Time: 10:57 EDMS 05/27 00:46 Order name: PTT, Activated Partial Thromb; Complete Time: 10:57 EDMS 05/27 05:16 Order name: PTT, Activated Partial Thromb; Complete Time: 10:57 EDMS 05/27 05:22 Order name: CBC with Automated Diff; Complete Time: 10:57 EDMS 05/27 05:35 Order name: Comprehensive Metabolic Panel; Complete Time: 10:57 EDMS 05/27 05:35 Order name: Magnesium; Complete Time: 10:57 EDMS 05/27 09:38 Order name: PTT, Activated Partial Thromb; Complete Time: 10:57 EDMS 05/27 13:14 Order name: ABG Arterial Blood Gas; Complete Time: 10:57 EDMS 05/28 05:08 Order name: CBC with Automated Diff; Complete Time: 10:57 EDMS 05/28 05:31 Order name: Comprehensive Metabolic Panel; Complete Time: 10:57 EDMS 05/28 05:31 Order name: Phosphorus; Complete Time: 10:57 EDMS 05/28 05:31 Order name: Magnesium; Complete Time: 10:57 EDMS 10/05 05:08 Order name: CBC with Automated Diff; Complete Time: 16:02 EDMS 05/29 05:28 Order name: Comprehensive Metabolic Panel; Complete Time: 16:02 EDMS 05/29 05:28 Order name: Phosphorus; Complete Time: 16:02 EDMS 05/29 05:28 Order name: Magnesium; Complete Time: 16:02 EDMS 05/29 23:51 Order name: Vancomycin Level Trough; Complete Time: 16:02 EDMS 05/30 05:06 Order name: CBC with Automated Diff; Complete Time: 16:02 EDMS 05/30 05:35 Order name: Comprehensive Metabolic Panel; Complete Time: 16:02 EDMS 05/30 05:35 Order name: Phosphorus; Complete Time: 16:02 EDMS 05/30 05:35 Order name: Magnesium; Complete Time: 16:02 EDMS 05/30 07:16 Order name: Manual Differential; Complete Time: 16:02 EDMS 05/31 06:05 Order name: Comprehensive Metabolic Panel; Complete Time: 16:04 EDMS 05/31 06:05 Order name: Phosphorus; Complete Time: 16:04 MS 05/23 17:13 Order name: XRAY Chest (1 view); Complete Time: 17:58 05/23 17:13 Order name: EKG; Complete Time: 17:13 05/23 17:13 Order name: Cardiac monitoring; Complete Time: 17:13 05/23 17:13 Order name: EKG - Nurse/Tech; Complete Time: 17:20 05/23 17:13 Order name: IV Saline Lock; Complete Time: 17:13 05/23 17:13 Order name: Labs collected and sent; Complete Time: 17:13 05/23 17:13 Order name: O2 Per Protocol; Complete Time: 17:13 05/23 17:13 Order name: O2 Sat Monitoring; Complete Time: 17:13 05/23 17:17 Order name: Straight Cath; Complete Time: 18:36 05/23 17:21 Order name: Urine Dipstick-Ancillary (obtain specimen); Complete Time: 18:03 1 05/23 18:31 Order name: CT Chest Wo Con; Complete Time: 19:21 05/24 14:52 Order name: US; Complete Time: 08:02 EDMS 05/25 07:16 Order name: RAD; Complete Time: 08:02 EDMS 05/25 11:30 Order name: RAD; Complete Time: 11:37 EDMS 05/25 15:13 Order name: RAD; Complete Time: 15:39 EDMS 05/26 17:17 Order name: RAD; Complete Time: 10:57 EDMS 05/27 08:31 Order name: RAD; Complete Time: 10:57 EDMS 05/29 14:38 Order name: RAD; Complete Time: 16:02 EDMS 05/31 06:05 Order name: Magnesium; Complete Time: 16:04 EDMS 05/31 06:10 Order name: CBC with Automated Diff; Complete Time: 16:04 EDMS 06/01 06:25 Order name: CBC with Automated Diff; Complete Time: 10:52 EDMS 06/01 06:32 Order name: Comprehensive Metabolic Panel; Complete Time: 10:52 EDMS 06/01 06:32 Order name: Phosphorus; Complete Time: 10:52 EDMS 06/01 06:32 Order name: Magnesium; Complete Time: 10:52 EDMS 06/01 09:04 Order name: RAD; Complete Time: 10:52 EDMS 06/01 11:52 Order name: CORONAVIRUS EDMS 06/01 12:56 Order name: SARS-COV-2 RT PCR; Complete Time: 10:52 EDMS 06/02 04:55 Order name: Basic Metabolic Panel; Complete Time: 10:52 EDMS 06/02 04:55 Order name: Phosphorus; Complete Time: 10:52 EDMS 06/02 04:55 Order name: Magnesium; Complete Time: 10:52 EDMS 06/02 11:45 Order name: Potassium; Complete Time: 10:52 EDMS 06/02 18:21 Order name: ABG Arterial Blood Gas; Complete Time: 10:52 EDMS Administered Medications: 05/23 17:21 Drug: Ringers - Lactated Ringers Solution 1000 ml Route: IV; Rate: bolus; Site: right ld1 antecubital; 05/25 23:15 Follow up: IV Status: Completed infusion bs2 05/23 18:05 Drug: Lopressor (metoprolol) 5 mg Route: IVP; Site: right antecubital; ld1 18:10 Drug: Lopressor (metoprolol) 5 mg Route: IVP; Site: right antecubital; ld1 18:15 Drug: Lopressor (metoprolol) 5 mg Route: IVP; Site: right antecubital; ld1 18:34 Follow up: Response: No adverse reaction ld1 18:15 Drug: Rocephin (cefTRIAXone) 1 grams Route: IV; Rate: calculated rate; Site: right ld1 antecubital; 18:33 Follow up: Response: No adverse reaction; IV Status: Completed infusion; IV Intake: [id number] 18:33 Drug: LevaQUIN (levofloxacin) 750 mg Volume: 150 ml; Route: IVPB; Infused Over: 90 ld1 mins; Site: right antecubital; 20:03 Follow up: Response: No adverse reaction; IV Status: Completed infusion; IV Intake: jb4 150ml 18:33 Drug: Ringers - Lactated Ringers Solution 1000 ml Route: IV; Rate: bolus; Site: right ld1 antecubital; 19:30 Follow up: Response: No adverse reaction; IV Status: Completed infusion; IV Intake: jb4 1000ml 20:40 Drug: Magnesium Sulfate 2 grams Route: IVPB; Infused Over: 2 hrs; Site: right ea antecubital; 22:40 Follow up: Response: No adverse reaction; IV Status: Completed infusion; IV Intake: jb4 200ml 22:45 Drug: NS 0.9% 500 ml Route: IV; Rate: bolus; Site: left antecubital; jb4 05/25 23:14 Follow up: IV Status: Completed infusion bs2 22:30 Drug: Heparin (DVT/PE Drip) 18 units/kg/hr - (HEParin 83459 units, D5W 500 ml) bs2 {Co-Signature: kc4 (Makenna Fofana.} Route: IV; Rate: 18 mcg/kg/min; Site: right upper arm; 05/26 04:55 Follow up: Rate change 1100 units/hr; 3,000 unit bolus given per last PTT draw, rate bs2 increased to 1100 units per hour Disposition Summary: 05/23/21 18:32 Hospitalization Ordered Hospitalization Status: Inpatient Admission jr8 Provider: Pedro Pablo Caruso Condition: Fair jr8 Problem: new jr8 Symptoms: have improved jr8 Bed/Room Type: [facility] Location: [facility] ER HOLD(05/23/21 22:49) la1 Room Assignment: ERHOLD-(05/23/21 22:49) la1 Diagnosis - Severe sepsis with septic shock jr8 - Pneumonia, unspecified organism jr8 - Hypomagnesemia jr8 - Supraventricular tachycardia jr8 Forms: - Medication Reconciliation Form jr8 - SBAR form jr8 Addendum: 06/04/2021 11:04 Co-signature as Attending Physician, Lebron Ochoa MD I agree with the assessment and k dr plan of care. Signatures: Dispatcher [employer] EDMS Lebron Ochoa MD MD kdr Nieto, Roman, MD MD rn Hudson, Jonathan, PA PA jr8 Zully, Kris, CLAIMS ADJUSTOR-C CLAIMS ADJUSTOR-Cla1 Nallely Martinez, RN RN tl1 Hilton Verduzco, RN RN jb4 Alea Metzger RN RN Stella Mcdaniel RN RN ld1 Kandice Kaur RN RN bs2 Makenna Farr kc4 Corrections: (The following items were deleted from the chart) 05/23 17:31 17:18 THYROID STIMULAT HORMONE+C.LAB.BRZ ordered. EDMS EDMS 17:31 17:18 T4 FREE+C.LAB.BRZ ordered. EDMS EDMS 19:44 18:35 CORONAVIRUS+MR.LAB.BRZ ordered. EDMS EDMS 21:37 18:32 jr8 tl1 22:49 18:32 Telemetry/MedSurg (Inpatient) jr8 la1 22:49 21:37 207 tl1 la1
[2021-05-23] MEDS ORDERED: MAGNESIUM SULFATE 1 gm IVPB 2 GM/200 ML BAG IV ONE (19:04)
--- NOTE | 2021-05-23 19:11 | RAD REPORT ---
EXAM DESCRIPTION: CT - Thorax Wo Con CLINICAL HISTORY: Chest pain PAIN COMPARISON: No comparisons FINDINGS: Moderate sized area of airspace consolidation is seen in the right lower lobe with a locul ated moderate right pleural effusion, likely representing pneumonia. Emphysema is present in the left lung. The heart size is normal. Small hiatal hernia is present. No pericardial fluid is seen. Diffuse osteopenia is seen with moderate thoracic degenerative changes. Small stones are present in t he right kidney. 14 mm low-density lesion is present in the right lobe liver, nonspecific. All CT scans are performed using dose optimization technique as appropriate and may include automated exposure control or mA/KV adjustment according to patient size. IMPRESSION: Moderate airspace consolidation in the right lower lobe with loculated right pleural eff usion likely represents pneumonia.
--- NOTE | 2021-05-23 20:34 | P.HP ---
Certification for Inpatient Patient admitted to: Inpatient With expected LOS: >2 Midnights Patient will require the following post-hospital care: None Practitioner: I am a practitioner with admitting privileges, knowledge of patient current condition, hospital course, and medical plan of care. Services: Services provided to patient in accordance with Admission requirements found in Title 42 Section 412.3 of the Code of Federal Regulations Patient History Date of Service: 05/23/21 Primary Care Provider: None Reason for admission: Severe sepsis, pneumonia History of Present Illness: 81-year-old male with GERD, hyperlipidemia, possibly CHF presents emergency department for shortness of breath. Patient reports that he lives at home with a caregiver who is concerned about his wellbeing and had him transported to the emergency department. Patient was hypoxic upon arrival to the emergency department with saturations around 88% on room air and tachycardic with heart rate around 131 and blood pressure of 107/58. Patient was given 30 cc/kg fluid bolus, vital signs improved with heart rate currently 93 blood pre ssure 112/66. Labs were significant for white blood cell count 40.8 hemoglobin 12.4 hematocrit 38.1 lactic acid 3.8 magnesium 1.5T bili 1.2D bili 0.7 BNP 1497 procalcitonin 4.15 Covid test pending chest x-ray demonstrated moderate opacification of the right hemithorax noted likely combination of airspace consolidation/pneumonia and pleural effusion left lung grossly clear heart upper limit of normal in size, CT without contrast of the chest demonstrated moderate airspace consolidation in the right lower lobe with loculated right pleural effusion likely represents pneumonia. Case was discussed with pulmonology recommends for aggressive treatment with IV antibiotics, blood cultures and sputum cultures to be ordered and patient be admitted for further evaluation and management of severe sepsis, pneumonia. Patient oriented x2, not able to tell me the year but seems to be aware of what is going on, reports that he has no family in the area only his caregiver, unable to reach caregiver at this time. Patient wishes for full code. Allergies No Known Allergies Allergy (Verified 08/11/19 10:42) Home Medications: Atorvastatin Calcium 40 mg PO DAILY 07/29/19 Tamsulosin HCl 0.4 mg PO DAILY 07/29/19 Besifloxacin HCl [Besivance] 1 gtt RIGHT EYE BID 08/11/19 Difluprednate [Durezol] 1 gtt RIGHT EYE BID 08/11/19 Nepafenac [Ilevro] 1 gtt RIGHT EYE DAILY 08/11/19 - Past Medical/Surgical History -: BPH -: Hypertension -: CHF? -: right hip repair Psychosocial/ Personal History: Patient lives at home with a caregiverSherry - Family History Family History: Reviewed- Non-Contributory - Social History Smoking Status: Current every day smoker Counseled patient to stop smoking for: less than 10 minutes Smoking therapy provided: No Alcohol use: Yes CD- Drugs: No Caffeine use: Yes Place of Residence: Home Review of Systems 10-point ROS is otherwise unremarkable General: Weakness, Malaise Respiratory: Cough, Shortness of Breath Physical Examination - Physical Exam General: Alert, In no apparent distress, Oriented x2, Disheveled, Other (Ill) HEENT: Atraumatic, Normocephalic, Other (Mucous membranes are dry) Neck: Supple Respiratory: Diminished, Crackles/rales Cardiovascular: Normal pulses, Normal S1 S2 Capillary refill: <2 Seconds Gastrointestinal: Normal bowel sounds, Soft and benign Integumentary: No significant lesion, No tenderness/swelling, No erythema Neurological: Normal speech, Normal tone - Studies Laboratory Data (last 24 hrs) 05/23/21 17:15: PT 14.9 H, INR 1.29 05/23/21 17:15: WBC 40.80 H*, Hgb 12.4 L, Hct 38.1 L, Plt Count 510 H 05/23/21 17:15: Sodium 142, Potassium 4.0, BUN 17, Creatinine 0.72, Glucose 124 H, Magnesium 1.5 L, Total Bilirubin 1.2 H, AST 18, ALT 15, Alkaline Phosphatase 79 Assessment and Plan - Plan Assessment: Severe sepsis secondary to right lower lobe pneumonia with loculated pleural effusion Hypomagnesemia BPH Hyperlipidemia Plan: Severe sepsis secondary to right lower lobe pneumonia with loculated pleural effusion: Case was discussed with pulmonology antibiotics recommended Levaquin/vancomycin blood and sputum cultures and IV fluids. Initial lactic acid 3.8, blood pressure been stable. We will recheck a lactate level. Patient with significant leukocytosis we will check with daily labs. Appreciate further input from pulmonology. Patient reportedly lives with account processor but according to ER staff arrived disheveled, dirty. Will need to evaluate patient's living circumstances. Hypomagnesemia: Magnesium protocol in place, given IV mag in the ER. BPH: Continue home medication Hyperlipidemia: Continue medication DVT PPX: Lovenox Code status: Full Discharge Plan: Home Plan to discharge in: Greater than 2 days - Advance Directives Does patient have a Living Will: No Does patient have a Durable POA for Healthcare: No - Code Status/Comfort Care Code Status Assessed: Yes (Full code) Critical Care: No Time Spent Managing Pts Care (In Minutes): 55
[2021-05-23 21:48] LABS: Blood Morphology Comment NOT SEEN (NOT SEEN); Platelet Estimate INCR
[2021-05-23] MEDS ORDERED: VANCOMYCIN/NS 1 gm 1 GM/250 ML BAG IVPB SCH (22:26)
[2021-05-23] MEDS ORDERED: ONDANSETRON 4 MG/2 ML VIAL IV PRN (22:26)
[2021-05-23] MEDS ORDERED: ACETAMINOPHEN 500 MG TAB PO PRN (22:26)
[2021-05-23] MEDS: NA CHLORIDE 0.9% 1,000 ML IV SCH (22:26)
[2021-05-23] MEDS ORDERED: VANCOMYCIN 1.25 GM in NA CHLORIDE 0.9% 250 ML IVPB ONE (23:00)
[2021-05-23] MEDS ORDERED: NA CHLORIDE 0.9% 500 ML ONE (23:07)
[2021-05-24] MEDS ORDERED: NA CHLORIDE 0.9% 1,000 ML ONE ×2 (00:49→12:21)
[2021-05-24] MEDS ORDERED: NA CHLORIDE 0.9% 250 ML ONE (00:49)
[2021-05-24] MEDS ORDERED: VANCOMYCIN 1 GM/VIAL ONE (00:49)
[2021-05-24 03:54] LABS: Basophils % 0.4 % (0-1.3); Hematocrit 34.8 % (39.6-49.0); Lymphocytes % 6.3 % (15.3-44.8); RBC Red Blood Cell Count 4.12 M/uL (4.33-5.43)
[2021-05-24 04:42] LABS: ALT/SGPT 13 U/L (12-78); AST/SGOT 21 U/L (15-37); Albumin 1.8 g/dL (3.4-5.0); Alkaline Phosphatase 66 U/L (45-117); BUN Blood Urea Nitrogen 14 mg/dL (7-18); Bicarbonate 28 mmol/L (21-32); Bilirubin Total 0.9 mg/dL (0.2-1.0); Glucose Level 103 mg/dL (74-106); HDL Cholesterol 24 mg/dL (40-60); LDL Cholesterol, Calculated 34 (<130); Potassium 3.3 mmol/L (3.5-5.1); Protein, Total 5.8 g/dL (6.4-8.2); Sodium Level 142 mmol/L (136-145); Thyroid Stimulating Hormone 0.669 uIU/mL (0.360-3.740)
--- NOTE | 2021-05-24 06:33 | P.PN ---
Subjective Date of Service: 05/24/21 Primary Care Provider: None Chief Complaint: Severe sepsis, pneumonia Subjective: Other (Patient overall stable. Patient started on IV amiodarone this morning) Physical Examination - Vital Signs Temperature: 98.0 F Blood Pressure: 91/61 Pulse: 115 Respirations: 17 Pulse Ox (%): 95 - Studies Laboratory Data (last 24 hrs) 05/23/21 17:15: PT 14.9 H, INR 1.29 05/23/21 17:15: WBC 40.80 H*, Hgb 12.4 L, Hct 38.1 L, Plt Count 510 H 05/23/21 17:15: Sodium 142, Potassium 4.0, BUN 17, Creatinine 0.72, Glucose 124 H, Magnesium 1.5 L, Total Bilirubin 1.2 H, AST 18, ALT 15, Alkaline Phosphatase 79 Assessment & Plan Discharge Plan: Home Plan to discharge in: Greater than 2 days Physician Review Additional Text: COVID: negative CXR: COMPARISON: CHEST SINGLE VIEW dated 04/13/2013; CHEST SINGLE VIEW dated 06/27/2010 FINDINGS: Portable technique limits examination quality. Moderate opacification of the right hemithorax is noted likely a combination of airspace consolidation/pneumonia and pleural effusion. The left lung is grossly clear. The heart is upper limit of normal in size. CT scan: COMPARISON: No comparisons FINDINGS: Moderate sized area of airspace consolidation is seen in the right lower lobe with a loculated moderate right pleural effusion, likely representing pneumonia. Emphysema is present in the left lung. The heart size is normal. Small hiatal hernia is present. No pericardial fluid is seen. Diffuse osteopenia is seen with moderate thoracic degenerative changes. Small stones are present in the right kidney. 14 mm low-density lesion is present in the right lobe liver, nonspecific. All CT scans are performed using dose optimization technique as appropriate and may include automated exposure control or mA/KV adjustment according to patient size. IMPRESSION: Moderate airspace consolidation in the right lower lobe with loculated right pleural effusion likely represents pneumonia. Physical exam: General: Patient appears disheveled not well kept. HEENT: Atraumatic, Normocephalic, Other (Mucous membranes are dry) Neck: Supple Respiratory: Diminished, Crackles/rales Cardiovascular: Atrial fibrillation rate around 120 Capillary refill: <2 Seconds Gastrointestinal: Normal bowel sounds, Soft and benign Integumentary: Muscle wasting to the upper and lower extremities Neurological: Normal speech, Normal tone Impression: Severe sepsis secondary to right lower lobe pneumonia with loculated pleural effusion Atrial fibrillation with RVR Acute on chronic systolic CHF with ejection fraction 25% with left ventricular thrombus Hypomagnesemia BPH Hyperlipidemia Severe protein malnutrition Plan: Severe sepsis secondary to right lower lobe pneumonia with loculated pleural effusion: Levaquin discontinued due to atrial fibrillation. Will continue with IV cefepime and vancomycin. Patient now with atrial fibrillation with RVR. IV amiodarone started. Case discussed with cardiology this morning. Case discussed again with cardiology this afternoon after echocardiogram showed ejection fraction 25% in left ventricular thrombus noted. Patient on anticoagulation therapyXarelto. After discussion with cardiology will change Xarelto to Lovenox at 1 mg/kg subcu twice daily. Will adjust IV fluids to 50 cc/h. Will need to monitor for heart failure. Spoke with pulmonology at length . Patient needs to continue with antibiotics. Patient may require transfer for cardiovascular surgery for possible VATS but pulmonology wants to continue with current medications at this time. Try to get a hold of family but patient reports no family member. Atrial fibrillation with RVR: Case discussed at length with cardiology this morning. IV amiodarone started. Will change Xarelto to Lovenox at 1 mg/kg subcu twice daily. Chronic systolic CHF with ejection fraction 25% with left ventricular thrombus: Anticoagulation adjusted. Patient needs to be better controlled with his rhythm. Will decrease IV fluids . Will monitor chest x-ray daily. Hypomagnesemia: Electrolyte protocol in place. BPH: Continue with medication Hyperlipidemia: Continue medication Severe protein malnutrition: We will consult dietary. Encourage oral intake. DVT PPX: Lovenox Code status: Full Discharge Plan: Patient may require long-term care in the future. We will need to continue to discuss with patient. Time Spent Managing Pts Care (In Minutes): 55
[2021-05-24] MEDS ORDERED: POTASSIUM CL SA 10 MEQ TAB PO ONE ×2 (07:25→08:13)
[2021-05-24] MEDS ORDERED: PNEUMOCOCCAL VACCINE 0.5 ML IMVAC ONE (08:00)
[2021-05-24] MEDS ORDERED: ENOXAPARIN 40 MG/0.4 ML SQ ONE (08:13)
[2021-05-24] MEDS: CEFEPIME 1 GM/100 ML BAG IV SCH ×2 (08:15→21:00)
[2021-05-24] MEDS: NA CHLORIDE 0.9% 1,000 ML IV SCH ×3 (08:15→15:00)
[2021-05-24] MEDS: AMIODARONE HCL 900 MG in Dextrose 5%-Water 482 ML IV SCH ×2 (08:50→15:01)
[2021-05-24] MEDS ORDERED: ENOXAPARIN 40 MG/0.4 ML SQ SCH (09:00)
[2021-05-24] MEDS ORDERED: Levofloxacin 750mg IV 750 MG/150 ML BAG IV SCH (09:00)
[2021-05-24] MEDS ORDERED: CEFEPIME 1 GM/VIAL IV SCH (09:00)
[2021-05-24] MEDS ORDERED: VANCOMYCIN 1.25 GM in NA CHLORIDE 0.9% 250 ML IV SCH (12:00)
[2021-05-24] MEDS: VANCOMYCIN 1 GM in NA CHLORIDE 0.9% 250 ML IV SCH (12:00)
[2021-05-24] MEDS ORDERED: ARFORMOTEROL TARTRATE 15 MCG/2 ML VIAL.NEB NEB SCH (13:16)
--- NOTE | 2021-05-24 13:16 | P.CNS ---
Date of Consult: 05/24/21 Reason for Consult: Pneumonia Primary Care Provider: None Chief Complaint: Severe sepsis, pneumonia History of Present Illness: AGe 81 AW SOB, R LL pneumonia and locualted R effusion. Denies chest pain fever or chills, Denies alcohol abuse, smoker hypoxic on RA OA / Doing well no complaints, Afib Allergies No Known Allergies Allergy (Verified 08/11/19 10:42) Home Medications: Atorvastatin Calcium 40 mg PO DAILY 07/29/19 Tamsulosin HCl 0.4 mg PO DAILY 07/29/19 Besifloxacin HCl [Besivance] 1 gtt RIGHT EYE BID 08/11/19 Difluprednate [Durezol] 1 gtt RIGHT EYE BID 08/11/19 Nepafenac [Ilevro] 1 gtt RIGHT EYE DAILY 08/11/19 - Past Medical/Surgical History -: BPH -: Hypertension -: CHF? -: right hip repair Psychosocial/ Personal History: Patient lives at home with a caregiverSherry - Social History Smoking Status: Unknown if ever smoked Alcohol use: Yes CD- Drugs: No Caffeine use: Yes Place of Residence: Home Review of Systems 10-point ROS is otherwise unremarkable General: Weakness Respiratory: Shortness of Breath Physical Examination Temp Pulse Resp BP Pulse Ox 98.0 F 105 H 20 104/65 98 05/24/21 13:00 05/24/21 13:00 05/24/21 13:00 05/24/21 13:00 05/24/21 13:00 General: Alert, In no apparent distress, Oriented x3 Neck: Supple Respiratory: Diminished (Diminised on R side with crackles) Cardiovascular: No edema, Normal S1 S2 Laboratory Data (last 24 hrs) 05/23/21 17:15: PT 14.9 H, INR 1.29 05/23/21 17:15: WBC 40.80 H*, Hgb 12.4 L, Hct 38.1 L, Plt Count 510 H 05/23/21 17:15: Sodium 142, Potassium 4.0, BUN 17, Creatinine 0.72, Glucose 124 H, Magnesium 1.5 L, Total Bilirubin 1.2 H, AST 18, ALT 15, Alkaline Phosphatase 79 - Problems (1) Pneumonia Current Visit: Yes Status: Acute Plan: Age 81 AW RLL pneumonia and locualted effusion,septic elevated WBC/ labs reviewed WBC is declinign AW vanc and levaquin, labs reviewed. VS stabel onAmio. CWIVF , nebs/ BP stable/ poss transfer to teritary care facility whenn stabel for vats Qualifiers: Pneumonia type: due to unspecified organism Laterality: right
--- NOTE | 2021-05-24 14:52 | RAD REPORT ---
EXAM DESCRIPTION: US - Chest - 05/24/2021 2:10 pm CLINICAL HISTORY: Pleural effusion COMPARISON: CT May 23, 2021 FINDINGS: Small to moderate loculated right pleural effusion IMPRESSION: Small to moderate loculated right pleural effusion
[2021-05-24] MEDS: NACHLORIDE 0.45% 1,000 ML IV SCH (14:59)
[2021-05-24] MEDS ORDERED: ENOXAPARIN 60 MG/0.6 ML SQ SCH (15:00)
--- NOTE | 2021-05-24 15:23 | CON ---
Date of Consultation: 05/24/2021 Reason For Consultation: Atrial fibrillation. History Of Present Illness: This is an 81-year-old male with history of dyslipidemia, acid reflux, p ersonal history of heart failure, presented to the emergency room with shortness of breath. The marita ent was hypoxic, diagnosed with pneumonia, and sepsis due to that. Had an echocardiogram which I huang her, showed severely depressed LVEF at 25% to 30% and likely a small apical thrombosis present and no other abnormalities. Evaluated him by bedside. He is awake and alert, but confused. Past Medical History: As outlined above in the HPI. Medications: Refer to reconciliation sheet for detailed list. Allergies: NO KNOWN DRUG ALLERGIES. Family History: No premature coronary artery disease or cancer. Social History: Does not smoke or drink. Does not use drugs. Review of Systems: All systems reviewed and they were negative except what mentioned in HPI. Physical Examination: Vital Signs: Reviewed. Head and Neck: Pupils are equal, reactive to light. Intact eye movements. No JVD. No cervical lym phadenopathy. Neck: Supple. Thyroid is not enlarged. Lungs: Rhonchi bilaterally with no accessory muscle use or muscle obstruction. Heart: Irregularly irregular. No extra sounds. Abdomen: Soft, nontender. Bowel sounds positive. No organomegaly. No masses or hernia. No rigidi ty or rebound. Extremities: No clubbing or cyanosis. Intact pulses. Skin: No rash. Neurologic: Alert, awake. No acute focal deficits appreciated. Lymph Nodes: No cervical or axillary lymphadenopathy. Investigations: Creatinine 0.4. NT-ProBNP is 1497. Troponin 0.04. White blood cell count is , hemoglobin is 11.4. The EKG is AFib with rapid ventricular response. Assessment And Recommendations: 1.Atrial fibrillation with rapid ventricular response. Recommend IV amiodarone load with 150 mg ove r 10 minutes, 1 mg/minute for 6 hours, and then 0.5 mg/minute for the reminder of 24 hours. In the i nterim if blood pressure allows, can use metoprolol 5 mg q.1 hour for rate control and blood pressure drops and does not allow on metoprolol, can use 1 dose of digoxin 0.25 mg IV. 2.Likely small left ventricular thrombosis. Please start the patient on IV heparin for therapeutic INR or subcutaneous Lovenox 1 mg/kg subcu q.12 hours to be transitioned to oral once his condition is more stable. 3.Severely depressed systolic heart failure. This could be tachyarrhythmia induced; however, recomm end to trend troponins and if he converts to sinus rhythm, to repeat an echocardiogram and if the EF seems to be low, then recommend a nuclear stress test during this hospital stay. /JÚNIOR Voice ID: [id number] Report ID: [id number]
--- NOTE | 2021-05-24 15:58 | EKG ---
Test Date: 2021-05-23 Test Time: 17:15:01 Extension Forester: CATHY MEASUREMENT RESULTS: Intervals: Rate: 191 IA: QRSD: 66 QT: 228 QTc: 406 [place]: P: IA: QRS: 26 T: 3 INTERPRETIVE STATEMENTS: Supraventricular tachycardia with premature supraventricular complexes Anteroseptal infarct, age undetermined Abnormal ECG Compared to ECG 04/13/2013 08:22:57 Atrial premature complex(es) now present Sinus rhythm no longer present Myocardial infarct finding still present Electronically Signed On 05-24-21 15:56:27 CDT by Abrahan Gutierres
--- NOTE | 2021-05-24 15:58 | EKG ---
Test Date: 2021-05-23 Test Time: 17:19:08 Eight Section Blower: CATHY MEASUREMENT RESULTS: Intervals: Rate: 126 IA: 168 QRSD: 70 QT: 316 QTc: 457 [place]: P: IA: 168 QRS: 16 T: 59 INTERPRETIVE STATEMENTS: Sinus tachycardia with occasional premature ventricular complexes and fusion complexes Anteroseptal infarct, age undetermined Abnormal ECG Compared to ECG 05/23/2021 17:15:01 Fusion complex(es) now present Ventricular premature complex(es) now present Atrial premature complex(es) no longer present Supraventricular tachycardia no longer present Myocardial infarct finding still present Electronically Signed On 05-24-21 15:56:25 CDT by Abrahan Gutierres
--- NOTE | 2021-05-24 15:59 | ECHO ---
HEIGHT: 6 ft 1 in WEIGHT: 119 lb 15.962 oz DATE OF STUDY: 05/24/[address]: Pedro Pablo Caruso DO 2-DIMENSIONAL: YES M.MODE: YES DOPPLER: YES COLOR FLOW: YES TDS: NO PORTABLE: NO DEFINITY: NO BUBBLE STUDY: NO DIAGNOSIS: ATRIAL FIBRILLATION CARDIAC HISTORY: CATHERIZATION: NO SURGERY: NO PROSTHETIC VALVE: NO PACEMAKER: NO MEASUREMENTS (cm) DIASTOLIC (NORMALS) SYSTOLIC (NORMALS) IVSd 1.2 (0.6-1.2) LA Diam 3.3 (1.9-4.0) LVEF 25-30% LVIDd 3.1 (3.5-5.7) LVIDs 2.4 (2.0-3.5) %FS 23% LVPWd 1.3 (0.6-1.2) Ao Diam 2.2 (2.0-3.7) 2 DIMENSIONAL ASSESSMENT: RIGHT ATRIUM: NORMAL LEFT ATRIUM: NORMAL RIGHT VENTRICLE: NORMAL LEFT VENTRICLE: SEVERELY DEPRESSED TRICUSPID VALVE: NORMAL MITRAL VALVE: PULMONIC VALVE: NORMAL AORTIC VALVE: THICKENED, NO PERICARDIAL EFFUSION: NONE AORTIC ROOT: NORMAL LEFT VENTRICULAR WALL MOTION: SEVERE GLOBAL HYPOKINESIS. DOPPLER/COLOR FLOW: SEE BELOW. COMMENTS: SEVERELY DEPRESSED LEFT VENTRICULAR EJECTION FRACTION OF 25-30%. DIASTOLIC DYSFUNCTION. SEVERE GLOBAL HYPOKINESIS. MILD MITRAL REGURGITATION. SMALL APICAL LEFT VENTRICULAR THROMBUS. TECHNOLOGIST: Alina GRIFFITHS
[2021-05-24] MEDS ORDERED: RIVAROXABAN 20 MG TABLET PO SCH (17:00)
[2021-05-24] MEDS ORDERED: VANCOMYCIN/NS 1 gm 1 GM/250 ML BAG IV SCH (17:00)
[2021-05-24] MEDS: ENOXAPARIN 60 MG/0.6 ML SQ SCH (21:00)
[2021-05-24] MEDS: FAMOTIDINE 20 MG TAB PO SCH (21:00)
[2021-05-24] MEDS: FOLIC ACID 1 MG TABLET PO SCH (21:00)
[2021-05-25] MEDS ORDERED: FOLIC ACID 1 MG TABLET ONE ×2 (01:54→08:43)
[2021-05-25] MEDS ORDERED: FAMOTIDINE 20 MG TAB ONE ×2 (01:54→08:43)
[2021-05-25] MEDS ORDERED: VANCOMYCIN 1 GM/VIAL ONE (01:54)
[2021-05-25] MEDS ORDERED: NA CHLORIDE 0.9% 250 ML ONE (01:55)
[2021-05-25] MEDS ORDERED: ENOXAPARIN 60 MG/0.6 ML SQ ONE ×2 (01:55→08:43)
[2021-05-25 04:22] LABS: Absolute Lymphocytes (CBC) 1.9 K/uL (0.7-4.9); Basophils % 0.4 % (0-1.3); Lymphocytes % 8.9 % (15.3-44.8); MPV 9.1 fL (7.6-11.3); RBC Red Blood Cell Count 3.88 M/uL (4.33-5.43)
[2021-05-25 04:37] LABS: ALT/SGPT 23 U/L (12-78); AST/SGOT 42 U/L (15-37); Albumin 1.7 g/dL (3.4-5.0); Alkaline Phosphatase 62 U/L (45-117); BUN Blood Urea Nitrogen 10 mg/dL (7-18); Bicarbonate 20 mmol/L (21-32); Bilirubin Total 0.7 mg/dL (0.2-1.0); Glucose Level 108 mg/dL (74-106); Magnesium 1.9 mg/dL (1.8-2.4); Potassium 3.5 mmol/L (3.5-5.1); Protein, Total 5.6 g/dL (6.4-8.2); Sodium Level 140 mmol/L (136-145)
--- NOTE | 2021-05-25 06:49 | P.PN ---
Subjective Date of Service: 05/25/21 Primary Care Provider: None Chief Complaint: Severe sepsis, pneumonia Subjective: Other (Patient overall stable. Currently on room air. Patient remains on IV amiodarone.) Physical Examination - Vital Signs Temperature: 98.5 F Blood Pressure: 97/63 Pulse: 104 Respirations: 17 Pulse Ox (%): 93 Assessment & Plan Discharge Plan: Transfer Plan to discharge in: Greater than 2 days Physician Review Additional Text: COVID: negative CXR: COMPARISON: CHEST SINGLE VIEW dated 04/13/2013; CHEST SINGLE VIEW dated 06/27/2010 FINDINGS: Portable technique limits examination quality. Moderate opacification of the right hemithorax is noted likely a combination of airspace consolidation/pneumonia and pleural effusion. The left lung is grossly clear. The heart is upper limit of normal in size. CT scan: COMPARISON: No comparisons FINDINGS: Moderate sized area of airspace consolidation is seen in the right lower lobe with a loculated moderate right pleural effusion, likely representing pneumonia. Emphysema is present in the left lung. The heart size is normal. Small hiatal hernia is present. No pericardial fluid is seen. Diffuse osteopenia is seen with moderate thoracic degenerative changes. Small stones are present in the right kidney. 14 mm low-density lesion is present in the right lobe liver, nonspecific. All CT scans are performed using dose optimization technique as appropriate and may include automated exposure control or mA/KV adjustment according to patient size. IMPRESSION: Moderate airspace consolidation in the right lower lobe with loculated right pleural effusion likely represents pneumonia. ECHO: MEASUREMENTS (cm) DIASTOLIC (NORMALS) SYSTOLIC (NORMALS) IVSd 1.2 (0.6-1.2) LA Diam 3.3 (1.9-4.0) LVEF 25-30% LVIDd 3.1 (3.5-5.7) LVIDs 2.4 (2.0-3.5) %FS 23% LVPWd 1.3 (0.6-1.2) Ao Diam 2.2 (2.0-3.7) 2 DIMENSIONAL ASSESSMENT: RIGHT ATRIUM: NORMAL LEFT ATRIUM: NORMAL RIGHT VENTRICLE: NORMAL LEFT VENTRICLE: SEVERELY DEPRESSED TRICUSPID VALVE: NORMAL MITRAL VALVE: PULMONIC VALVE: NORMAL AORTIC VALVE: THICKENED, NO PERICARDIAL EFFUSION: NONE AORTIC ROOT: NORMAL LEFT VENTRICULAR WALL MOTION: SEVERE GLOBAL HYPOKINESIS. DOPPLER/COLOR FLOW: SEE BELOW. COMMENTS: SEVERELY DEPRESSED LEFT VENTRICULAR EJECTION FRACTION OF 25-30%. DIASTOLIC DYSFUNCTION. SEVERE GLOBAL HYPOKINESIS. MILD MITRAL REGURGITATION. SMALL APICAL LEFT VENTRICULAR THROMBUS. Chest US: CLINICAL HISTORY: Pleural effusion COMPARISON: CT May 23, 2021 FINDINGS: Small to moderate loculated right pleural effusion IMPRESSION: Small to moderate loculated right pleural effusion Follow up CXR 05-25-2021: COMPARISON: Chest Single View dated 05/23/2021; CHEST SINGLE VIEW dated 04/13/2013; CHEST SINGLE VIEW dated 06/27/2010 FINDINGS: Lines: None. Lungs: Moderate consolidative airspace disease in the right lung appears modestly worsened. Pleural: Small right effusion. Cardiac: The heart size is within normal limits. Bones: No acute fractures. IMPRESSION: Consolidative airspace disease and pleural effusion in the right lung with mild interval worsening compared with 05/23/2021. Physical exam: General: Patient alert, cooperative. Currently on room air. Patient appears malnourished HEENT: Atraumatic, Normocephalic, Other (Mucous membranes are dry) Neck: Supple Respiratory: Crackles to the right side Cardiovascular: A. fib around 110-120 Capillary refill: <2 Seconds Gastrointestinal: Normal bowel sounds, Soft and benign Integumentary: Muscle wasting to the upper and lower extremities. Patient malnourished Neurological: Normal speech, Normal tone Impression: Severe sepsis secondary to right lower lobe pneumonia with moderate loculated pleural effusion Atrial fibrillation with RVR Acute on chronic combined CHF with ejection fraction 25% with small apical left ventricular thrombus and diastolic dysfunction Hypomagnesemia BPH Hyperlipidemia Severe protein malnutrition Plan: Severe sepsis secondary to right lower lobe pneumonia with moderate loculated pleural effusion: Patient remains on IV cefepime and vancomycin to cover for pneumonia. Patient on room air. Blood cultures pending. Sputum culture pending. Case discussed at length with pulmonology. Patient needs to be transferred for higher level of care evaluation and treatment for VATS/cardiovascular surgery to address moderate loculated pleural effusion. Will arrange for transfer. Patient remains on IV amiodarone for atrial fibrillation with RVR. Patient also on Lovenox at 1 mg/kg subcu twice daily for left ventricular thrombus. Patient remains on IV fluids. Cardiology recommends repeat echocardiogram in the next couple of days to further evaluate. Cardiology also recommends cardiac stress test once medically stable to further evaluate for possible underlying CAD. Case discussed at length with patient. Patient agrees with plan of care. Patient has no family. Will recommend long- term care at final discharge. Atrial fibrillation with RVR: Patient remains on IV amiodarone and Lovenox at 1 mg/kg subcu twice daily. Continue with above recommendations. Acute on chronic combined CHF with ejection fraction 25% with small apical left ventricular thrombus and diastolic dysfunction: Cardiology feels this may be tachyarrhythmia induced. Continue Lovenox at 1 mg/kg subcu twice daily. Continue IV amiodarone. Cardiology recommends to repeat echocardiogram in the next couple of days. Patient will require cardiac stress test to further evaluate his condition. Hypomagnesemia: Electrolyte protocol in place. BPH: Continue with medication Hyperlipidemia: Continue medication Severe protein malnutrition: Dietary to address daily needs. DVT PPX: Lovenox Code status: Full Discharge Plan: Will plan for transfer for higher level of care. Will recommend long-term care at final discharge. Time Spent Managing Pts Care (In Minutes): 55
--- NOTE | 2021-05-25 07:15 | RAD REPORT ---
EXAM DESCRIPTION: RAD - Chest Single View - 05/25/2021 6:42 am CLINICAL HISTORY: penumonia COMPARISON: Chest Single View dated 05/23/2021; CHEST SINGLE VIEW dated 04/13/2013; CHEST SINGLE VIEW dated 06/27/2010 FINDINGS: Lines: None. Lungs: Moderate consolidative airspace disease in the right lung appears modestly worsened. Pleural: Small right effusion. Cardiac: The heart size is within normal limits. Bones: No acute fractures. Other: IMPRESSION: Consolidative airspace disease and pleural effusion in the right lung with mild interval worsening compared with 05/23/2021.
[2021-05-25] MEDS ORDERED: INFLUENZA VACCINE (for 6+ mo) 0.5 ML DOSE IMVAC ONE (08:00)
[2021-05-25] MEDS ORDERED: THIAMINE HCL 100 MG TABLET ONE (08:43)
[2021-05-25] MEDS ORDERED: NACHLORIDE 0.45% 1,000 ML IV ONE (08:43)
[2021-05-25] MEDS ORDERED: NA CHLORIDE 0.9% 0 ML ONE (08:43)
[2021-05-25] MEDS ORDERED: POTASSIUM CL SA 10 MEQ TAB PO ONE (08:45)
[2021-05-25] MEDS: ENOXAPARIN 60 MG/0.6 ML SQ SCH (09:00)
[2021-05-25] MEDS: CEFEPIME 1 GM/100 ML BAG IV SCH (09:00)
[2021-05-25] MEDS: FOLIC ACID 1 MG TABLET PO SCH ×2 (09:00→21:00)
[2021-05-25] MEDS: THIAMINE HCL 100 MG TABLET PO SCH (09:00)
[2021-05-25] MEDS: FAMOTIDINE 20 MG TAB PO SCH ×2 (09:00→21:00)
[2021-05-25] MEDS: NACHLORIDE 0.45% 1,000 ML IV SCH (11:00)
--- NOTE | 2021-05-25 11:29 | RAD REPORT ---
EXAM DESCRIPTION: RAD - Chest Lateral Decubitus - 05/25/2021 11:13 am CLINICAL HISTORY: follow up loculated R Pleural effusion COMPARISON: Chest Single View dated 05/25/2021; Thorax Wo Con dated 05/23/2021 FINDINGS: Severely limited due to positioning and overlapping anatomy. At least some portion of the right pleural effusion is free-flowing. IMPRESSION: Right pleural effusion, at least a portion of which is free-flowing.
[2021-05-25] MEDS: VANCOMYCIN 1 GM in NA CHLORIDE 0.9% 250 ML IV SCH ×3 (12:00)
[2021-05-25] MEDS: ENSURE ENLIVE 237 ML CAN PO SCH ×2 (14:00→21:00)
--- NOTE | 2021-05-25 15:12 | RAD REPORT ---
EXAM DESCRIPTION: RAD - Chest Single View - 05/25/2021 3:00 pm CLINICAL HISTORY: picc line placement COMPARISON: Chest Single View dated 05/25/2021; Chest Single View dated 05/23/2021; CHEST SINGLE VIEW dated 04/13/2013; CHEST SINGLE VIEW dated 06/27/2010 FINDINGS: Portable chest was obtained following placement of a right upper extremity PICC line. The catheter tip projects over the right atrium. Recommend 2-3 cm of retraction for optimum placement.
[2021-05-25 20:15] LABS: Protime INR 1.21
[2021-05-25] MEDS ORDERED: HEPARIN/D5W 25,000 UNIT/500 ML BAG IV ONE (22:54)
[2021-05-26] MEDS: CEFEPIME 1 GM/100 ML BAG IV SCH ×3 (01:45→20:17)
[2021-05-26] MEDS ORDERED: CEFEPIME 1 GM/VIAL ONE ×3 (02:08→20:08)
[2021-05-26] MEDS ORDERED: FAMOTIDINE 20 MG TAB ONE ×2 (02:09→10:34)
[2021-05-26] MEDS ORDERED: FOLIC ACID 1 MG TABLET ONE ×3 (02:09→20:06)
[2021-05-26] MEDS: VANCOMYCIN 1 GM in NA CHLORIDE 0.9% 250 ML IV SCH ×3 (02:09→23:59)
[2021-05-26] MEDS ORDERED: NA CHLORIDE 0.9% 250 ML ONE ×2 (02:09→02:10)
[2021-05-26] MEDS ORDERED: VANCOMYCIN 1 GM/VIAL ONE ×2 (02:09→23:54)
[2021-05-26] MEDS ORDERED: FENTANYL CITR 100 MCG/2 ML IV ONE (02:43)
[2021-05-26 02:48] LABS: Absolute Lymphocytes (CBC) 1.6 K/uL (0.7-4.9); Basophils % 0.1 % (0-1.3); Hematocrit 35.4 % (39.6-49.0); Lymphocytes % 7.7 % (15.3-44.8); MPV 8.8 fL (7.6-11.3); RBC Red Blood Cell Count 4.19 M/uL (4.33-5.43)
[2021-05-26] MEDS ORDERED: FENTANYL CITR 100 MCG/2 ML ONE (03:04)
[2021-05-26 03:07] LABS: ALT/SGPT 31 U/L (12-78); AST/SGOT 44 U/L (15-37); Albumin 1.9 g/dL (3.4-5.0); Alkaline Phosphatase 67 U/L (45-117); BUN Blood Urea Nitrogen 8 mg/dL (7-18); Bicarbonate 22 mmol/L (21-32); Bilirubin Total 0.6 mg/dL (0.2-1.0); Glucose Level 127 mg/dL (74-106); Magnesium 1.7 mg/dL (1.8-2.4); Potassium 3.5 mmol/L (3.5-5.1); Protein, Total 6.1 g/dL (6.4-8.2); Sodium Level 140 mmol/L (136-145)
[2021-05-26] MEDS ORDERED: HEPARIN 5000 UNIT/ML 1 ML VIAL ONE ×2 (05:07→11:34)
--- NOTE | 2021-05-26 06:30 | P.PN ---
Subjective Date of Service: 05/26/21 Primary Care Provider: None Chief Complaint: Severe sepsis, pneumonia Subjective: Other (Patient stable at this time. Patient was requiring 4 L per nasal cannula this morning. Nurse reported around noon time patient requiring high flow then BiPAP.) Physical Examination - Vital Signs Temperature: 97.6 F Blood Pressure: 96/65 Pulse: 108 Respirations: 28 Pulse Ox (%): 90 Assessment & Plan Discharge Plan: Transfer Plan to discharge in: Greater than 2 days Physician Review Additional Text: COVID: negative CXR: COMPARISON: CHEST SINGLE VIEW dated 04/13/2013; CHEST SINGLE VIEW dated 06/27/2010 FINDINGS: Portable technique limits examination quality. Moderate opacification of the right hemithorax is noted likely a combination of airspace consolidation/pneumonia and pleural effusion. The left lung is grossly clear. The heart is upper limit of normal in size. CT scan: COMPARISON: No comparisons FINDINGS: Moderate sized area of airspace consolidation is seen in the right lower lobe with a loculated moderate right pleural effusion, likely representing pneumonia. Emphysema is present in the left lung. The heart size is normal. Small hiatal hernia is present. No pericardial fluid is seen. Diffuse osteopenia is seen with moderate thoracic degenerative changes. Small stones are present in the right kidney. 14 mm low-density lesion is present in the right lobe liver, nonspecific. All CT scans are performed using dose optimization technique as appropriate and may include automated exposure control or mA/KV adjustment according to patient size. IMPRESSION: Moderate airspace consolidation in the right lower lobe with loculated right pleural effusion likely represents pneumonia. ECHO: MEASUREMENTS (cm) DIASTOLIC (NORMALS) SYSTOLIC (NORMALS) IVSd 1.2 (0.6-1.2) LA Diam 3.3 (1.9-4.0) LVEF 25-30% LVIDd 3.1 (3.5-5.7) LVIDs 2.4 (2.0-3.5) %FS 23% LVPWd 1.3 (0.6-1.2) Ao Diam 2.2 (2.0-3.7) 2 DIMENSIONAL ASSESSMENT: RIGHT ATRIUM: NORMAL LEFT ATRIUM: NORMAL RIGHT VENTRICLE: NORMAL LEFT VENTRICLE: SEVERELY DEPRESSED TRICUSPID VALVE: NORMAL MITRAL VALVE: PULMONIC VALVE: NORMAL AORTIC VALVE: THICKENED, NO PERICARDIAL EFFUSION: NONE AORTIC ROOT: NORMAL LEFT VENTRICULAR WALL MOTION: SEVERE GLOBAL HYPOKINESIS. DOPPLER/COLOR FLOW: SEE BELOW. COMMENTS: SEVERELY DEPRESSED LEFT VENTRICULAR EJECTION FRACTION OF 25-30%. DIASTOLIC DYSFUNCTION. SEVERE GLOBAL HYPOKINESIS. MILD MITRAL REGURGITATION. SMALL APICAL LEFT VENTRICULAR THROMBUS. Chest US: CLINICAL HISTORY: Pleural effusion COMPARISON: CT May 23, 2021 FINDINGS: Small to moderate loculated right pleural effusion IMPRESSION: Small to moderate loculated right pleural effusion Follow up CXR 05-25-2021: COMPARISON: Chest Single View dated 05/23/2021; CHEST SINGLE VIEW dated 04/13/2013; CHEST SINGLE VIEW dated 06/27/2010 FINDINGS: Lines: None. Lungs: Moderate consolidative airspace disease in the right lung appears modestly worsened. Pleural: Small right effusion. Cardiac: The heart size is within normal limits. Bones: No acute fractures. IMPRESSION: Consolidative airspace disease and pleural effusion in the right lung with mild interval worsening compared with 05/23/2021. Physical exam: General: When I saw the patient earlier patient requiring 4 L per nasal cannula. Nurses now report patient requiring BiPAP HEENT: Atraumatic, Normocephalic, Other (Mucous membranes are dry) Neck: Supple Respiratory: Crackles to the right side Cardiovascular: A. fib around 110-120 Capillary refill: <2 Seconds Gastrointestinal: Normal bowel sounds, Soft and benign Integumentary: Muscle wasting to the upper and lower extremities. 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 Patient remains on IV cefepime and vancomycin to cover for pneumonia. Patient this morning was on 4 L per nasal cannula. Just now nurse called reporting patient requiring high flow then BiPAP. Patient previously on Lasix for CHF. EF 25% noted. Will give Lasix 20 mg IV now and continue daily. We will try to wean off BiPAP. Case discussed at length with cardiovascular surgery and finishing area supervisor yesterday concerning transfer for cardiovascular surgery evaluation. Awaiting bed at this time. Atrial fibrillation with RVR: Patient remains on IV amiodarone and heparin drip. Continue with above recommendations. 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 Will start Lasix IV. Recheck chest x-ray. Wean off oxygen/BiPAP. Hypomagnesemia: Electrolyte protocol in place. BPH: Continue with medication Hyperlipidemia: Continue medication Severe protein malnutrition: Dietary to address daily needs. DVT PPX: Lovenox Code status: Full Discharge Plan: Case discussed with cardiovascular surgery and finishing area supervisor yesterday. Awaiting bed for transfer. Time Spent Managing Pts Care (In Minutes): 55
[2021-05-26] MEDS: NACHLORIDE 0.45% 1,000 ML IV SCH (07:00)
[2021-05-26] MEDS: ENOXAPARIN 60 MG/0.6 ML SQ SCH (08:43)
[2021-05-26] MEDS: FOLIC ACID 1 MG TABLET PO SCH ×2 (09:00→20:17)
[2021-05-26] MEDS: FAMOTIDINE 20 MG TAB PO SCH ×2 (09:00→20:17)
[2021-05-26] MEDS: THIAMINE HCL 100 MG TABLET PO SCH (09:00)
[2021-05-26] MEDS: ATORVASTATIN 40 MG TAB PO SCH (09:00)
[2021-05-26] MEDS: TAMSULOSIN 0.4 MG SR CAP PO SCH (09:00)
[2021-05-26] MEDS: ENSURE ENLIVE 237 ML CAN PO SCH ×3 (09:00→20:17)
[2021-05-26] MEDS: ASCORBIC ACID 500 MG TABLET PO SCH (09:00)
[2021-05-26] MEDS ORDERED: ASCORBIC ACID 500 MG TABLET ONE (10:32)
[2021-05-26] MEDS ORDERED: TAMSULOSIN 0.4 MG SR CAP ONE (10:33)
[2021-05-26] MEDS ORDERED: ATORVASTATIN 20 MG TAB ONE (10:33)
[2021-05-26] MEDS ORDERED: THIAMINE HCL 100 MG TABLET ONE (10:33)
[2021-05-26] MEDS ORDERED: NA CHLORIDE 0.9% 100 ML ONE (10:34)
[2021-05-26] MEDS ORDERED: NACHLORIDE 0.45% 1,000 ML IV ONE (10:35)
[2021-05-26] MEDS: HEPARIN/D5W 25,000 UNIT/500 ML BAG IV SCH ×2 (10:59→21:04)
[2021-05-26] MEDS: HEPARIN 5000 UNIT/ML 1 ML VIAL IV SCH (11:06)
[2021-05-26] MEDS ORDERED: FUROSEMIDE 20 MG/ 2ML VIAL IV ONE (12:10)
[2021-05-26] MEDS ORDERED: FUROSEMIDE 20 MG/ 2ML VIAL ONE (12:46)
[2021-05-26] MEDS: AMIODARONE HCL 900 MG in Dextrose 5%-Water 482 ML IV SCH (16:40)
[2021-05-26] MEDS ORDERED: AMIODARONE IN DEXTROSE,ISO-OSM 360 MG/200 ML BAG IV ONE ×2 (17:02→20:09)
--- NOTE | 2021-05-26 17:16 | RAD REPORT ---
EXAM DESCRIPTION: RAD - Chest Single View - 05/26/2021 2:42 pm CLINICAL HISTORY: follow up CHF/pleural effusion COMPARISON: Chest Single View dated 05/25/2021; Chest Single View dated 05/25/2021; Chest Single View dated 05/23/2021; CHEST SINGLE VIEW dated 04/13/2013; Thorax Wo Con dated 05/23/2021 FINDINGS: Moderate right-sided pleural effusion again identified and not significantly changed. Ther e is underlying airspace disease which is also grossly similar in may reflect passive atelectasis. Ri ght subclavian approach PICC with tip difficult to visualize but likely overlying the SVC. Left lung remains relatively clear. Cardiomegaly. No fractures are identified . IMPRESSION: Unchanged moderate right-sided pleural effusion and underlying atelectasis and/or pneumo cristy.
[2021-05-26] MEDS ORDERED: HEPARIN/D5W 25,000 UNIT/500 ML BAG IV ONE (19:52)
[2021-05-26] MEDS ORDERED: FAMOTIDINE 20 MG/2 ML VIAL IV ONE (20:08)
[2021-05-27] MEDS ORDERED: NA CHLORIDE 0.9% 250 ML ONE ×2 (00:18→23:42)
[2021-05-27] MEDS ORDERED: HYDROMORPHONE HCL 2 MG/ML inj ONE (02:39)
[2021-05-27] MEDS: AMIODARONE HCL 900 MG in Dextrose 5%-Water 482 ML IV SCH (03:50)
[2021-05-27 05:11] LABS: Absolute Lymphocytes (CBC) 1.9 K/uL (0.7-4.9); Basophils % 0.3 % (0-1.3); Hematocrit 28.2 % (39.6-49.0); Lymphocytes % 10.7 % (15.3-44.8); MPV 8.7 fL (7.6-11.3)
[2021-05-27 05:30] LABS: ALT/SGPT 25 U/L (12-78); AST/SGOT 30 U/L (15-37); Albumin 1.6 g/dL (3.4-5.0); Alkaline Phosphatase 55 U/L (45-117); BUN Blood Urea Nitrogen 7 mg/dL (7-18); Bicarbonate 25 mmol/L (21-32); Bilirubin Total 0.4 mg/dL (0.2-1.0); Glucose Level 192 mg/dL (74-106); Magnesium 1.6 mg/dL (1.8-2.4); Protein, Total 5.1 g/dL (6.4-8.2); Sodium Level 140 mmol/L (136-145)
[2021-05-27 05:35] LABS: Potassium 2.9 mmol/L (3.5-5.1)
[2021-05-27] MEDS ORDERED: KCL 20 MEQ/100 mL IVPB 20 MEQ/100 ML BAG IV SCH (05:47)
[2021-05-27] MEDS ORDERED: KCL 20 MEQ/100 mL IVPB 60 MEQ/300 ML BAG IV ONE (06:24)
--- NOTE | 2021-05-27 06:30 | P.PN ---
Subjective Date of Service: 05/27/21 Primary Care Provider: None Chief Complaint: Severe sepsis, pneumonia Subjective: Other (Patient remains on BiPAP. Poor oral intake noted. Awaiting transfer) Physical Examination - Vital Signs Temperature: 97.8 F Blood Pressure: 131/97 Pulse: 74 Respirations: 18 Pulse Ox (%): 100 Assessment & Plan Discharge Plan: Transfer Plan to discharge in: 24 Hours Physician Review Additional Text: COVID: negative CXR: COMPARISON: CHEST SINGLE VIEW dated 04/13/2013; CHEST SINGLE VIEW dated 06/27/2010 FINDINGS: Portable technique limits examination quality. Moderate opacification of the right hemithorax is noted likely a combination of airspace consolidation/pneumonia and pleural effusion. The left lung is grossly clear. The heart is upper limit of normal in size. CT scan: COMPARISON: No comparisons FINDINGS: Moderate sized area of airspace consolidation is seen in the right lower lobe with a loculated moderate right pleural effusion, likely representing pneumonia. Emphysema is present in the left lung. The heart size is normal. Small hiatal hernia is present. No pericardial fluid is seen. Diffuse osteopenia is seen with moderate thoracic degenerative changes. Small stones are present in the right kidney. 14 mm low-density lesion is present in the right lobe liver, nonspecific. All CT scans are performed using dose optimization technique as appropriate and may include automated exposure control or mA/KV adjustment according to patient size. IMPRESSION: Moderate airspace consolidation in the right lower lobe with loculated right pleural effusion likely represents pneumonia. ECHO: MEASUREMENTS (cm) DIASTOLIC (NORMALS) SYSTOLIC (NORMALS) IVSd 1.2 (0.6-1.2) LA Diam 3.3 (1.9-4.0) LVEF 25-30% LVIDd 3.1 (3.5-5.7) LVIDs 2.4 (2.0-3.5) %FS 23% LVPWd 1.3 (0.6-1.2) Ao Diam 2.2 (2.0-3.7) 2 DIMENSIONAL ASSESSMENT: RIGHT ATRIUM: NORMAL LEFT ATRIUM: NORMAL RIGHT VENTRICLE: NORMAL LEFT VENTRICLE: SEVERELY DEPRESSED TRICUSPID VALVE: NORMAL MITRAL VALVE: PULMONIC VALVE: NORMAL AORTIC VALVE: THICKENED, NO PERICARDIAL EFFUSION: NONE AORTIC ROOT: NORMAL LEFT VENTRICULAR WALL MOTION: SEVERE GLOBAL HYPOKINESIS. DOPPLER/COLOR FLOW: SEE BELOW. COMMENTS: SEVERELY DEPRESSED LEFT VENTRICULAR EJECTION FRACTION OF 25-30%. DIASTOLIC DYSFUNCTION. SEVERE GLOBAL HYPOKINESIS. MILD MITRAL REGURGITATION. SMALL APICAL LEFT VENTRICULAR THROMBUS. Chest US: CLINICAL HISTORY: Pleural effusion COMPARISON: CT May 23, 2021 FINDINGS: Small to moderate loculated right pleural effusion IMPRESSION: Small to moderate loculated right pleural effusion Follow up CXR 05-27-2021: COMPARISON: Chest Single View dated 05/26/2021; Chest Single View dated 05/25/2021; Chest Single View dated 05/25/2021; Chest Single View dated 05/23/2021; Thorax Wo Con dated 05/23/2021 FINDINGS: Rotated patient which obscures portions of the chest. The left lung remains clear. The right-sided pleural effusion is again noted but not as well assessed. Right subclavian approach PICC. IMPRESSION: Limited due to rotation. Right-sided pleural effusion with underlying atelectasis and/or consolidation again noted. The left lung remains clear. Physical exam: General: Alert, cooperative. Currently on BiPAP. HEENT: Atraumatic, Normocephalic, Other (Mucous membranes are dry) Neck: Supple Respiratory: Crackles to the right side Cardiovascular: A. fib, rate controlled Capillary refill: <2 Seconds Gastrointestinal: Normal bowel sounds, Soft and benign Integumentary: Muscle wasting to the upper and lower extremities. 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 Continue IV cefepime and vancomycin. Continue to wean off BiPAP. Pulmonology plans to change heparin drip to Lovenox at 1 mg/kg subcu twice daily. Still awaiting transfer to [facility] to continue further evaluation and treatment for loculated pleural effusion. Case discussed at length with cardiovascular surgery and servomechanism designer the other day. Will discuss with pulmonology here about the possibility of thoracentesis if patient continues to remain in transit for transfer. If no significant improvement in oral nutrition will consider Dobbhoff. Case discussed at length with nurse taking care of patient today. I will turn to service over to the hospitalist team tomorrow. I will plan of care with him. Atrial fibrillation with RVR: Patient remains on IV amiodarone and Lovenox. Continue with above recommendations. 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 Wean off oxygen/BiPAP. Continue with above plan of care. Lasix discontinued by pulmonology Hypomagnesemia: Electrolyte protocol in place. BPH: Continue with medication Hyperlipidemia: Continue medication Severe protein malnutrition: Dietary to address daily needs. Encourage oral intake. If poor oral intake will need to consider Dobbhoff. DVT PPX: Lovenox Code status: Full Discharge Plan: Awaiting transfer to [facility] Time Spent Managing Pts Care (In Minutes): 55
[2021-05-27] MEDS: KCL 20 MEQ/100 mL IVPB 20 MEQ/100 ML BAG IV SCH ×2 (07:48→09:48)
--- NOTE | 2021-05-27 08:31 | RAD REPORT ---
EXAM DESCRIPTION: RAD - Chest Single View - 05/27/2021 5:45 am CLINICAL HISTORY: follow up pleural effusion COMPARISON: Chest Single View dated 05/26/2021; Chest Single View dated 05/25/2021; Chest Single View dated 05/25/2021; Chest Single View dated 05/23/2021; Thorax Wo Con dated 05/23/2021 FINDINGS: Rotated patient which obscures portions of the chest. The left lung remains clear. The rig ht-sided pleural effusion is again noted but not as well assessed. Right subclavian approach PICC. IMPRESSION: Limited due to rotation. Right-sided pleural effusion with underlying atelectasis and/or consolidation again noted. The left lung remains clear.
[2021-05-27] MEDS: FAMOTIDINE 20 MG TAB PO SCH ×2 (09:00→20:01)
[2021-05-27] MEDS: THIAMINE HCL 100 MG TABLET PO SCH (09:00)
[2021-05-27] MEDS: TAMSULOSIN 0.4 MG SR CAP PO SCH (09:00)
[2021-05-27] MEDS ORDERED: FUROSEMIDE 20 MG/ 2ML VIAL IV SCH (09:00)
[2021-05-27] MEDS: ASCORBIC ACID 500 MG TABLET PO SCH (09:00)
[2021-05-27] MEDS: FOLIC ACID 1 MG TABLET PO SCH ×2 (09:00→20:00)
[2021-05-27] MEDS ORDERED: MAGNESIUM SULFATE 1 gm IVPB 1 GM/100 ML BAG IV ONE ×2 (09:00→09:52)
[2021-05-27] MEDS: CEFEPIME 1 GM/100 ML BAG IV SCH ×2 (09:00→20:00)
[2021-05-27] MEDS: ATORVASTATIN 40 MG TAB PO SCH (09:00)
[2021-05-27] MEDS: ENSURE ENLIVE 237 ML CAN PO SCH ×3 (09:00→20:00)
[2021-05-27] MEDS ORDERED: CEFEPIME 1 GM/VIAL ONE ×2 (09:28→19:56)
[2021-05-27] MEDS ORDERED: Magnesium Sulfate 2gm IVPB 2 G/50 ML BAG IV ONE (09:29)
[2021-05-27] MEDS ORDERED: FUROSEMIDE 100 MG/10 ML VIAL IV ONE (09:29)
[2021-05-27] MEDS: HEPARIN 5000 UNIT/ML 1 ML VIAL IV SCH (11:06)
[2021-05-27] MEDS ORDERED: ENOXAPARIN 100 MG/ML SYR SQ SCH (11:13)
[2021-05-27] MEDS: POTASSIUM 25 MEQ EFFERV TAB PO SCH ×2 (11:14→20:00)
--- NOTE | 2021-05-27 11:15 | P.PN ---
Subjective Date of Service: 05/27/21 Primary Care Provider: None Chief Complaint: Severe sepsis, pneumonia Patient is now on BiPAP normally responsive not eating and drinking Review of Systems is unable to be obtained Physical Examination - Vital Signs Temperature: 97.5 F Blood Pressure: 93/71 Pulse: 98 Respirations: 24 Pulse Ox (%): 95 - Physical Exam General: Alert, Other (Not cooperative) Neck: Supple Respiratory: Diminished (Diminished on the right side) Cardiovascular: No edema, Regular rate/rhythm Assessment & Plan - Problems (Diagnosis) (1) Pneumonia Current Visit: Yes Status: Acute Plan: Patient is 81 years of age admitted with pneumonia right-sided loculated effusion white count is improving on antibiotics developed respiratory failure currently on BiPAP will need a Dobbhoff poor nutrition hypokalemia rate controlled in A. fib DC heparin change patient to Lovenox DC Lasix aggressive potassium replacement arterial blood gases saturations satisfactory trial of BiPAP Qualifiers: Pneumonia type: due to unspecified organism Laterality: right (2) Congestive heart failure Current Visit: Yes Status: Acute Plan: Patient has severe congestive heart failure.pressure is slightly low has an apical thrombus Qualifiers: Heart failure chronicity: unspecified
[2021-05-27] MEDS ORDERED: FAMOTIDINE 20 MG/2 ML VIAL IV ONE (11:58)
[2021-05-27] MEDS: VANCOMYCIN 1 GM in NA CHLORIDE 0.9% 250 ML IV SCH ×2 (12:00→23:24)
[2021-05-27] MEDS ORDERED: HEPARIN 5000 UNIT/ML 1 ML VIAL IV SCH (12:00)
[2021-05-27 13:10] LABS: Arterial Blood Carboxyhemoglob 0.8 % (0-1.5); Blood Gas Oxyhemoglobin 91.4 % (94-97)
[2021-05-27] MEDS ORDERED: TAMSULOSIN 0.4 MG SR CAP ONE (13:29)
[2021-05-27] MEDS ORDERED: FOLIC ACID 1 MG TABLET ONE ×2 (13:29→19:56)
[2021-05-27] MEDS ORDERED: ASCORBIC ACID 500 MG TABLET ONE (13:29)
[2021-05-27] MEDS ORDERED: POTASSIUM 25 MEQ EFFERV TAB ONE ×2 (13:48→19:56)
[2021-05-27] MEDS ORDERED: THIAMINE HCL 100 MG TABLET ONE (13:48)
[2021-05-27] MEDS ORDERED: ATORVASTATIN 20 MG TAB ONE (13:49)
[2021-05-27] MEDS ORDERED: AMIODARONE IN DEXTROSE,ISO-OSM 360 MG/200 ML BAG IV ONE (13:59)
--- NOTE | 2021-05-27 16:46 | PN ---
Date of Progress Note: 05/25/2021 Mr. Gracia is 81. Has a history of dyslipidemia, acid reflux, heart failure, came in to the hospit al with shortness of breath, ejection fraction of 25% to 30% with a small apical thrombus. He also h as atrial fibrillation with rapid ventricular response. He was started on IV amiodarone with recomme ndation for metoprolol and digoxin on an as-needed basis. He was started on Lovenox as well. Today, he remains in sinus tach, heart rate 108, blood pressure is 96/65, room air saturation was 90%. Cre atinine of 0.45. His white count was 21,000. Potassium was 3.5. The patient presently is on amioda iwld, Lipitor, Lovenox, furosemide. He is on antibiotics. He is on magnesium. His blood pressure w ill not tolerate EPIFANIO inhibitors or beta-blockers. We will continue present regimen for now. His pro gnosis is poor. The patient has severe sepsis. He has pneumonia is on BiPAP, but he is not eating o r drinking. Dr. Bee is following. Continue present regimen. We will be available for question s if the need arises. DENEEN/JÚNIOR Voice ID: [id number] Report ID: [id number]
[2021-05-27] MEDS ORDERED: FAMOTIDINE 20 MG TAB ONE (19:56)
[2021-05-27] MEDS ORDERED: NA CHLORIDE 0.9% 100 ML ONE (19:56)
[2021-05-27] MEDS ORDERED: ENOXAPARIN 60 MG/0.6 ML SQ ONE (19:57)
[2021-05-27] MEDS: ENOXAPARIN 60 MG/0.6 ML SQ SCH (20:00)
[2021-05-27] MEDS ORDERED: D5W 250 ML IV ONE (21:45)
[2021-05-27] MEDS ORDERED: AMIODARONE HCL 150 MG/3 ML INJ IV ONE (21:45)
[2021-05-27] MEDS ORDERED: VANCOMYCIN 1 GM/VIAL ONE (23:42)
[2021-05-28] MEDS: AMIODARONE HCL 900 MG in Dextrose 5%-Water 482 ML IV SCH (04:18)
[2021-05-28 05:00] LABS: Absolute Lymphocytes (CBC) 1.4 K/uL (0.7-4.9); Basophils % 0.2 % (0-1.3); Hematocrit 26.9 % (39.6-49.0); Lymphocytes % 8.3 % (15.3-44.8); MPV 8.7 fL (7.6-11.3); RBC Red Blood Cell Count 3.23 M/uL (4.33-5.43)
[2021-05-28 05:31] LABS: ALT/SGPT 27 U/L (12-78); AST/SGOT 27 U/L (15-37); Albumin 1.7 g/dL (3.4-5.0); Alkaline Phosphatase 58 U/L (45-117); BUN Blood Urea Nitrogen 8 mg/dL (7-18); Bicarbonate 24 mmol/L (21-32); Bilirubin Total 0.4 mg/dL (0.2-1.0); Glucose Level 195 mg/dL (74-106); Magnesium 1.9 mg/dL (1.8-2.4); Phosphorus 2.4 mg/dL (2.5-4.9); Potassium 3.4 mmol/L (3.5-5.1); Protein, Total 5.3 g/dL (6.4-8.2); Sodium Level 141 mmol/L (136-145)
[2021-05-28] MEDS: KCL 20 MEQ/100 mL IVPB 20 MEQ/100 ML BAG IV SCH ×2 (05:55→08:00)
[2021-05-28] MEDS ORDERED: KCL 20 MEQ/100 mL IVPB 40 MEQ/200 ML BAG IV ONE (06:18)
[2021-05-28] MEDS: TAMSULOSIN 0.4 MG SR CAP PO SCH (09:00)
[2021-05-28] MEDS: ASCORBIC ACID 500 MG TABLET PO SCH (09:00)
[2021-05-28] MEDS: ENOXAPARIN 60 MG/0.6 ML SQ SCH ×2 (09:00→20:26)
[2021-05-28] MEDS: POTASSIUM 25 MEQ EFFERV TAB PO SCH ×2 (09:00→20:26)
[2021-05-28] MEDS: ENSURE ENLIVE 237 ML CAN PO SCH ×3 (09:00→20:25)
[2021-05-28] MEDS: THIAMINE HCL 100 MG TABLET PO SCH (09:00)
[2021-05-28] MEDS: CEFEPIME 1 GM/100 ML BAG IV SCH ×2 (09:00→20:26)
[2021-05-28] MEDS: FOLIC ACID 1 MG TABLET PO SCH ×2 (09:00→20:26)
[2021-05-28] MEDS: FAMOTIDINE 20 MG TAB PO SCH ×2 (09:00→20:26)
[2021-05-28] MEDS: ATORVASTATIN 40 MG TAB PO SCH (09:00)
[2021-05-28] MEDS ORDERED: ASCORBIC ACID 500 MG TABLET ONE (09:43)
[2021-05-28] MEDS ORDERED: CEFEPIME 1 GM/VIAL ONE ×2 (09:43→19:50)
[2021-05-28] MEDS ORDERED: ATORVASTATIN 20 MG TAB ONE (09:43)
[2021-05-28] MEDS ORDERED: FOLIC ACID 1 MG TABLET ONE ×2 (09:43→19:51)
[2021-05-28] MEDS ORDERED: TAMSULOSIN 0.4 MG SR CAP ONE (09:44)
[2021-05-28] MEDS ORDERED: POTASSIUM 25 MEQ EFFERV TAB ONE (09:44)
[2021-05-28] MEDS ORDERED: FAMOTIDINE 20 MG TAB ONE ×2 (09:44→19:51)
[2021-05-28] MEDS ORDERED: ENOXAPARIN 60 MG/0.6 ML SQ ONE ×2 (09:45→19:51)
[2021-05-28] MEDS ORDERED: NA CHLORIDE 0.9% 100 ML ONE ×2 (09:45→19:51)
[2021-05-28] MEDS ORDERED: NA CHLORIDE 0.9% 250 ML IV ONE (10:39)
[2021-05-28] MEDS ORDERED: NA CHLORIDE 0.9% 250 ML ONE (10:57)
--- NOTE | 2021-05-28 11:31 | P.PN ---
Subjective Date of Service: 05/28/21 Primary Care Provider: None Chief Complaint: Severe sepsis, pneumonia Pt is improvng not eating and drinking/ Alert copeorative Review of Systems Respiratory: Shortness of Breath Physical Examination - Vital Signs Temperature: 97.7 F Blood Pressure: 90/65 Pulse: 114 Respirations: 34 Pulse Ox (%): 97 - Physical Exam General: Alert, Cooperative Respiratory: Diminished (R side) Cardiovascular: No edema, Normal S1 S2 Assessment & Plan - Problems (Diagnosis) (1) Pneumonia Current Visit: Yes Status: Acute Plan: PT is iproving. CXRY rotated. WBC declining. plan for Miguel and feeding/ labs reviewed/ Awaiting transfer Qualifiers: Pneumonia type: due to unspecified organism Laterality: right (2) Congestive heart failure Current Visit: Yes Status: Acute Plan: Patient has severe congestive heart failure.pressure is slightly low has an apical thrombus/NC/ cultures neg Qualifiers: Heart failure chronicity: unspecified Physician Review Additional Text: COVID: negative CXR: COMPARISON: CHEST SINGLE VIEW dated 04/13/2013; CHEST SINGLE VIEW dated 06/27/2010 FINDINGS: Portable technique limits examination quality. Moderate opacification of the right hemithorax is noted likely a combination of airspace consolidation/pneumonia and pleural effusion. The left lung is grossly clear. The heart is upper limit of normal in size. CT scan: COMPARISON: No comparisons FINDINGS: Moderate sized area of airspace consolidation is seen in the right lower lobe with a loculated moderate right pleural effusion, likely representing pneumonia. Emphysema is present in the left lung. The heart size is normal. Small hiatal hernia is present. No pericardial fluid is seen. Diffuse osteopenia is seen with moderate thoracic degenerative changes. Small s tones are present in the right kidney. 14 mm low-density lesion is present in the right lobe liver, nonspecific. All CT scans are performed using dose optimization technique as appropriate and may include automated exposure control or mA/KV adjustment according to patient size. IMPRESSION: Moderate airspace consolidation in the right lower lobe with loculated right pleural effusion likely represents pneumonia. ECHO: MEASUREMENTS (cm) DIASTOLIC (NORMALS) SYSTOLIC (NORMALS) IVSd 1.2 (0.6-1.2) LA Diam 3.3 (1.9-4.0) LVEF 25-30% LVIDd 3.1 (3.5-5.7) LVIDs 2.4 (2.0-3.5) %FS 23% LVPWd 1.3 (0.6-1.2) Ao Diam 2.2 (2.0-3.7) 2 DIMENSIONAL ASSESSMENT: RIGHT ATRIUM: NORMAL LEFT ATRIUM: NORMAL RIGHT VENTRICLE: NORMAL LEFT VENTRICLE: SEVERELY DEPRESSED TRICUSPID VALVE: NORMAL MITRAL VALVE: PULMONIC VALVE: NORMAL AORTIC VALVE: THICKENED, NO PERICARDIAL EFFUSION: NONE AORTIC ROOT: NORMAL LEFT VENTRICULAR WALL MOTION: SEVERE GLOBAL HYPOKINESIS. DOPPLER/COLOR FLOW: SEE BELOW. COMMENTS: SEVERELY DEPRESSED LEFT VENTRICULAR EJECTION FRACTION OF 25-30%. DIASTOLIC DYSFUNCTION. SEVERE GLOBAL HYPOKINESIS. MILD MITRAL REGURGITATION. SMALL APICAL LEFT VENTRICULAR THROMBUS. Chest US: CLINICAL HISTORY: Pleural effusion COMPARISON: CT May 23, 2021 FINDINGS: Small to moderate loculated right pleural effusion IMPRESSION: Small to moderate loculated right pleural effusion Follow up CXR 05-27-2021: COMPARISON: Chest Single View dated 05/26/2021; Chest Single View dated 05/25/2021; Chest Single View dated 05/25/2021; Chest Single View dated 05/23/2021; Thorax Wo Con dated 05/23/2021 FINDINGS: Rotated patient which obscures portions of the chest. The left lung remains clear. The right-sided pleural effusion is again noted but not as well assessed. Right subclavian approach PICC. IMPRESSION: Limited due to rotation. Right-sided pleural effusion with underlying atelectasis and/or consolidation again noted. The left lung remains clear. Physical exam: General: Alert, cooperative. Currently on BiPAP. HEENT: Atraumatic, Normocephalic, Other (Mucous membranes are dry) Neck: Supple Respiratory: Crackles to the right side Cardiovascular: A. fib, rate controlled Capillary refill: <2 Seconds Gastrointestinal: Normal bowel sounds, Soft and benign Integumentary: Muscle wasting to the upper and lower extremities. 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 Continue IV cefepime and vancomycin. Continue to wean off BiPAP. Pulmonology plans to change heparin drip to Lovenox at 1 mg/kg subcu twice daily. Still awaiting transfer to [facility] to continue further evaluation and treatment for loculated pleural effusion. Case discussed at length with cardiovascular surgery and economic adviser the other day. Will discuss with pulmonology here about the possibility of thoracentesis if patient continues to remain in transit for transfer. If no significant improvement in oral nutrition will consider Dobbhoff. Case discussed at length with nurse taking care of patient today. I will turn to service over to the hospitalist team tomorrow. I will plan of care with him. Atrial fibrillation with RVR: Patient remains on IV amiodarone and Lovenox. Continue with above recommendations. 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 Wean off oxygen/BiPAP. Continue with above plan of care. Lasix discontinued by pulmonology Hypomagnesemia: Electrolyte protocol in place. BPH: Continue with medication Hyperlipidemia: Continue medication Severe protein malnutrition: Dietary to address daily needs. Encourage oral intake. If poor oral intake will need to consider Dobbhoff. DVT PPX: Lovenox Code status: Full Discharge Plan: Awaiting transfer to [facility]
[2021-05-28] MEDS ORDERED: ALBUMIN HUMAN 25% 200 ML IV ONE ×2 (11:59→12:38)
[2021-05-28] MEDS ORDERED: DIGOXIN 0.25 MG/ML AMP IV ONE (12:00)
[2021-05-28] MEDS: VANCOMYCIN 1 GM in NA CHLORIDE 0.9% 250 ML IV SCH ×2 (12:00→23:49)
[2021-05-28] MEDS ORDERED: DIGOXIN 0.25 MG/ML AMP ONE (12:34)
[2021-05-28] MEDS ORDERED: THIAMINE HCL 100 MG TABLET ONE (13:31)
[2021-05-28] MEDS ORDERED: AMIODARONE IN DEXTROSE,ISO-OSM 360 MG/200 ML BAG IV ONE (19:50)
[2021-05-29] MEDS ORDERED: VANCOMYCIN 1 GM/VIAL ONE ×2 (00:07→13:38)
[2021-05-29] MEDS ORDERED: NA CHLORIDE 0.9% 250 ML ONE ×2 (00:08→13:39)
[2021-05-29 04:59] LABS: Absolute Lymphocytes (CBC) 1.2 K/uL (0.7-4.9); Basophils % 0.2 % (0-1.3); Hematocrit 26.7 % (39.6-49.0); Lymphocytes % 7.9 % (15.3-44.8); MPV 8.9 fL (7.6-11.3); RBC Red Blood Cell Count 3.16 M/uL (4.33-5.43)
[2021-05-29 05:26] LABS: ALT/SGPT 23 U/L (12-78); AST/SGOT 25 U/L (15-37); Albumin 2.2 g/dL (3.4-5.0); Alkaline Phosphatase 93 U/L (45-117); BUN Blood Urea Nitrogen 9 mg/dL (7-18); Bicarbonate 25 mmol/L (21-32); Bilirubin Total 0.5 mg/dL (0.2-1.0); Glucose Level 108 mg/dL (74-106); Magnesium 1.9 mg/dL (1.8-2.4); Phosphorus 3.3 mg/dL (2.5-4.9); Potassium 4.1 mmol/L (3.5-5.1); Protein, Total 5.7 g/dL (6.4-8.2); Sodium Level 145 mmol/L (136-145)
[2021-05-29] MEDS: ENSURE ENLIVE 237 ML CAN PO SCH ×3 (09:00→20:14)
[2021-05-29] MEDS: ASCORBIC ACID 500 MG TABLET PO SCH (09:00)
[2021-05-29] MEDS: FAMOTIDINE 20 MG TAB PO SCH ×2 (09:00→20:15)
[2021-05-29] MEDS: POTASSIUM 25 MEQ EFFERV TAB PO SCH ×2 (09:00→20:15)
[2021-05-29] MEDS: ATORVASTATIN 40 MG TAB PO SCH (09:00)
[2021-05-29] MEDS: CEFEPIME 1 GM/100 ML BAG IV SCH ×2 (09:00→20:15)
[2021-05-29] MEDS: TAMSULOSIN 0.4 MG SR CAP PO SCH (09:00)
[2021-05-29] MEDS: FOLIC ACID 1 MG TABLET PO SCH ×2 (09:00→20:14)
[2021-05-29] MEDS: THIAMINE HCL 100 MG TABLET PO SCH (09:00)
[2021-05-29] MEDS: ENOXAPARIN 60 MG/0.6 ML SQ SCH ×2 (09:00→20:15)
--- NOTE | 2021-05-29 09:19 | P.PN ---
Subjective Date of Service: 05/28/21 Spoke to transfer center and hospitalist had accepted. Spoke to thoracic surgeon who stated that he was not really sure if patient was a surgical candidate. Concern that patient's ejection fraction was 25%. Wanted patient to go the medical ICU. We did not hear anything back from [facility]'s after this. Will contact them again to see what the hold up is. Patient has stayed in atrial fibrillation with rapid ventricular response. On amiodarone drip. Spoke with Cardiology-continue amiodarone drip at this time. Continue anti coagulation for left ventricle apical thrombus. Monitor pulmonary status closely. Long-term prognosis is poor. Patient may not be a surgical candidate at this time. Awaiting possible transfer to tertiary care facility Review of Systems is unable to be obtained Physical Examination - Vital Signs Temperature: 97.6 F Blood Pressure: 97/40 Pulse: 97 Respirations: 24 Pulse Ox (%): 93 - Physical Exam General: In no apparent distress, Confused Respiratory: Diminished, Crackles/rales Cardiovascular: Regular rate/rhythm, Normal S1 S2, No murmurs Gastrointestinal: Normal bowel sounds, Soft and benign, Non-distended, No tenderness Musculoskeletal: No clubbing, No swelling, No tenderness Neurological: Sensation intact, Cranial nerves 3-12 intact - Studies Microbiology Data (last 24 hrs): 05/23/21 17:40 Blood - Blood Aerobic Blood Culture - Final No growth in 5 days. 05/23/21 17:40 Blood - Blood Anaerobic Blood Culture - Final No growth in 5 days. 05/23/21 17:21 Blood - Blood Aerobic Blood Culture - Final No growth in 5 days. 05/23/21 17:21 Blood - Blood Anaerobic Blood Culture - Final No growth in 5 days. Medications List Reviewed: Yes Assessment & Plan - Problems (Diagnosis) (1) Loculated pleural effusion Current Visit: Yes Status: Acute (2) Atrial fibrillation with rapid ventricular response Current Visit: Yes Status: Acute (3) Congestive heart failure Current Visit: Yes Status: Acute Qualifiers: Heart failure chronicity: unspecified (4) Pneumonia Current Visit: Yes Status: Acute Qualifiers: Pneumonia type: due to unspecified organism Laterality: right (5) Leukocytosis Current Visit: Yes Status: Acute (6) Anemia Current Visit: Yes Status: Acute (7) Hypokalemia Current Visit: Yes Status: Acute (8) Left ventricular apical thrombus Current Visit: Yes Status: Acute (9) Cachexia Current Visit: Yes Status: Acute - Plan Plan: 1. Continue with cardiac meds 2. Amiodarone drip 3. Anticoagulation 4. Continue monitoring volume status closely. 5. Continue antibiotic therapy 6. GI and DVT prophylaxis Discharge Plan: Home Plan to discharge in: Greater than 2 days - Advance Directives Does patient have a Living Will: No Does patient have a Durable POA for Healthcare: No - Code Status/Comfort Care Code Status Assessed: Yes Code Status: Full Code Critical Care: Yes Time Spent Managing PTS Care (In Minutes): 45
--- NOTE | 2021-05-29 09:30 | P.PN ---
Date of Service: 05/29/21 Subjective Will contact transfer center again regarding bed assignment. Patient's clinical symptoms are not really improving. I believe overall his prognosis is poor and he probably is not a surgical candidate. I am not sure if she would benefit from any treatment at this point. He is very cachectic and weak and has some confusion as well. His prognosis remains poor. 05/28 Spoke to transfer center and hospitalist had accepted. Spoke to thoracic surgeon who stated that he was not really sure if patient was a surgical candidate. Concern that patient's ejection fraction was 25%. Wanted patient to go the medical ICU. We did not hear anything back from [facility]' after this. Will contact them again to see what the hold up is. Patient has stayed in atrial fibrillation with rapid ventricular response. On amiodarone drip. Spoke with Cardiology-continue amiodarone drip at this time. Continue anti coagulation for left ventricle apical thrombus. Monitor pulmonary status closely. Long-term prognosis is poor. Patient may not be a surgical candidate at this time. Awaiting possible transfer to tertiary care facility Review of Systems is unable to be obtained Physical Examination - Vital Signs reviewed - Physical Exam General: In no apparent distress, Confused; cachexia Respiratory: Diminished, Crackles/rales Cardiovascular: Regular rate/rhythm, Normal S1 S2, No murmurs Gastrointestinal: Normal bowel sounds, Soft and benign, Non-distended, No tenderness Musculoskeletal: No clubbing, No swelling, No tenderness Neurological: Sensation intact, Cranial nerves 3-12 intact Assessment & Plan - Problems (Diagnosis) (1) Loculated pleural effusion Current Visit: Yes Status: Acute (2) Atrial fibrillation with rapid ventricular response Current Visit: Yes Status: Acute (3) Congestive heart failure Current Visit: Yes Status: Acute Qualifiers: Heart failure chronicity: unspecified (4) Pneumonia Current Visit: Yes Status: Acute Qualifiers: Pneumonia type: due to unspecified organism Laterality: right (5) Leukocytosis Current Visit: Yes Status: Acute (6) Anemia Current Visit: Yes Status: Acute (7) Hypokalemia Current Visit: Yes Status: Acute (8) Left ventricular apical thrombus Current Visit: Yes Status: Acute (9) Cachexia Current Visit: Yes Status: Acute - Plan Plan: Continue with plan of care as mentioned below 1. Continue with cardiac meds 2. Amiodarone drip-repeat LFTs 3. Anticoagulation 4. Continue monitoring volume status closely. 5. Continue antibiotic therapy 6. Awaiting placement at [facility] once accepted 7. Need to increase his diet however patient refusing Dobhoff 8. GI prophylaxis Discharge Plan: [facility] Plan to discharge in: Greater than 2 days - Advance Directives Does patient have a Living Will: No Does patient have a Durable POA for Healthcare: No - Code Status/Comfort Care Code Status Assessed: Yes Code Status: Full Code Critical Care: Yes Time Spent Managing PTS Care (In Minutes): 45
[2021-05-29] MEDS ORDERED: THIAMINE HCL 100 MG TABLET ONE (09:54)
[2021-05-29] MEDS ORDERED: ATORVASTATIN 20 MG TAB ONE (09:54)
[2021-05-29] MEDS ORDERED: TAMSULOSIN 0.4 MG SR CAP ONE (09:54)
[2021-05-29] MEDS ORDERED: FOLIC ACID 1 MG TABLET ONE ×2 (09:54→20:13)
[2021-05-29] MEDS ORDERED: ASCORBIC ACID 500 MG TABLET ONE (09:54)
[2021-05-29] MEDS ORDERED: INFLUENZA VACCINE (for 6+ mo) 0.5 ML DOSE IMVAC ONE (09:55)
[2021-05-29] MEDS ORDERED: POTASSIUM 25 MEQ EFFERV TAB ONE (09:55)
[2021-05-29] MEDS ORDERED: FAMOTIDINE 20 MG TAB ONE ×2 (09:55→20:13)
[2021-05-29] MEDS ORDERED: ENOXAPARIN 60 MG/0.6 ML SQ ONE ×2 (09:56→20:13)
[2021-05-29] MEDS ORDERED: CEFEPIME 1 GM/VIAL ONE ×2 (10:30→20:13)
[2021-05-29] MEDS ORDERED: NA CHLORIDE 0.9% 100 ML ONE ×2 (10:31→20:19)
[2021-05-29] MEDS ORDERED: AMIODARONE IN DEXTROSE,ISO-OSM 360 MG/200 ML BAG IV ONE (11:02)
[2021-05-29] MEDS: VANCOMYCIN 1 GM in NA CHLORIDE 0.9% 250 ML IV SCH ×2 (12:00→23:58)
--- NOTE | 2021-05-29 14:37 | RAD REPORT ---
EXAM DESCRIPTION: RAD - Chest Single View - 05/29/2021 2:05 pm CLINICAL HISTORY: pleural effusion COMPARISON: Portable chest May 27 and May 26, CT chest May 23 TECHNIQUE: AP portable chest image was obtained 05/29/2021 2:05 pm . FINDINGS: Lung volumes are low. Bilateral interstitial alveolar opacities are present. Progression i s evident, exaggerated by the much lower lung volume on today's study. A component of true progressio n is suspected. Right-sided pleural effusions in the lateral mid chest and right base are again noted not significant ly different from comparison. No significant left-sided pleural effusion. Cardiomegaly similar to comparison. This is accentuated by the shallow inspiration portable techniqu e. No acute bony abnormality seen. No acute aortic findings suspected. IMPRESSION: Bilateral interstitial and alveolar opacification appearing worse than prior imaging. Th is is believed be a true progression that is exaggerated due to a much lower lung volume. Right-sided pleural fluid component not clearly different from comparison.
[2021-05-30] MEDS ORDERED: VANCOMYCIN 1 GM/VIAL ONE (00:17)
[2021-05-30] MEDS ORDERED: NA CHLORIDE 0.9% 250 ML ONE (00:17)
[2021-05-30 04:23] VITALS: BMI 15.6
[2021-05-30 05:01] LABS: Absolute Lymphocytes (CBC) 1.6 K/uL (0.7-4.9); Basophils % 0.6 % (0-1.3); Hematocrit 27.6 % (39.6-49.0); Lymphocytes % 11.9 % (15.3-44.8); MPV 8.9 fL (7.6-11.3); RBC Red Blood Cell Count 3.26 M/uL (4.33-5.43)
[2021-05-30 05:35] LABS: ALT/SGPT 22 U/L (12-78); AST/SGOT 22 U/L (15-37); Alkaline Phosphatase 77 U/L (45-117); BUN Blood Urea Nitrogen 11 mg/dL (7-18); Bicarbonate 23 mmol/L (21-32); Bilirubin Total 0.4 mg/dL (0.2-1.0); Glucose Level 116 mg/dL (74-106); Phosphorus 3.1 mg/dL (2.5-4.9); Potassium 3.8 mmol/L (3.5-5.1); Protein, Total 5.6 g/dL (6.4-8.2); Sodium Level 146 mmol/L (136-145)
[2021-05-30] MEDS ORDERED: KCL 20 MEQ/100 mL IVPB 20 MEQ/100 ML BAG IV SCH (06:00)
[2021-05-30] MEDS ORDERED: KCL 20 MEQ/100 mL IVPB 20 MEQ/100 ML BAG IV ONE (06:14)
[2021-05-30 07:16] LABS: Blood Morphology Comment NOT SEEN (NOT SEEN); Platelet Estimate ADEQ
[2021-05-30] MEDS: POTASSIUM 25 MEQ EFFERV TAB PO SCH ×2 (08:16→22:00)
[2021-05-30] MEDS: ENSURE ENLIVE 237 ML CAN PO SCH ×3 (08:16→21:00)
[2021-05-30] MEDS: ATORVASTATIN 40 MG TAB PO SCH (08:16)
[2021-05-30] MEDS: TAMSULOSIN 0.4 MG SR CAP PO SCH (08:16)
[2021-05-30] MEDS: FOLIC ACID 1 MG TABLET PO SCH ×2 (08:16→22:00)
[2021-05-30] MEDS: ENOXAPARIN 60 MG/0.6 ML SQ SCH ×2 (08:16→21:00)
[2021-05-30] MEDS: FAMOTIDINE 20 MG TAB PO SCH ×2 (08:17→21:00)
[2021-05-30] MEDS: ASCORBIC ACID 500 MG TABLET PO SCH (08:17)
[2021-05-30] MEDS: CEFEPIME 1 GM/100 ML BAG IV SCH ×2 (08:17→21:00)
[2021-05-30] MEDS: THIAMINE HCL 100 MG TABLET PO SCH (08:17)
[2021-05-30] MEDS ORDERED: CEFEPIME 1 GM/VIAL ONE ×2 (08:21→22:21)
[2021-05-30] MEDS ORDERED: FOLIC ACID 1 MG TABLET ONE ×2 (08:21→22:21)
[2021-05-30] MEDS ORDERED: THIAMINE HCL 100 MG TABLET ONE (08:21)
[2021-05-30] MEDS ORDERED: ASCORBIC ACID 500 MG TABLET ONE (08:21)
[2021-05-30] MEDS ORDERED: POTASSIUM 25 MEQ EFFERV TAB ONE ×2 (08:22→22:21)
[2021-05-30] MEDS ORDERED: ATORVASTATIN 20 MG TAB ONE (08:22)
[2021-05-30] MEDS ORDERED: TAMSULOSIN 0.4 MG SR CAP ONE (08:22)
[2021-05-30] MEDS ORDERED: FAMOTIDINE 20 MG TAB ONE ×2 (08:22→22:22)
[2021-05-30] MEDS ORDERED: ENOXAPARIN 60 MG/0.6 ML SQ ONE (08:23)
[2021-05-30] MEDS ORDERED: NA CHLORIDE 0.9% 100 ML ONE ×2 (08:23→22:22)
[2021-05-30] MEDS ORDERED: FUROSEMIDE 20 MG/ 2ML VIAL IV ONE (08:33)
[2021-05-30] MEDS ORDERED: ALBUMIN HUMAN 25% 50 ML IV ONE ×2 (08:34→09:44)
[2021-05-30] MEDS ORDERED: FUROSEMIDE 20 MG/ 2ML VIAL ONE (09:44)
--- NOTE | 2021-05-30 12:11 | P.PN ---
Subjective Date of Service: 05/30/21 Primary Care Provider: None Chief Complaint: Respiratory failure Patient is not doing well though alert refusing Dobbhoff for TPN chest x-ray looks worse on FiO2 90% Review of Systems General: Weakness Respiratory: Shortness of Breath Physical Examination - Vital Signs Temperature: 98.3 F Blood Pressure: 106/58 Pulse: 104 Respirations: 22 Pulse Ox (%): 94 - Physical Exam General: Alert, Cooperative Respiratory: Diminished Cardiovascular: No edema - Studies Medications List Reviewed: Yes Assessment & Plan - Problems (Diagnosis) (1) Pneumonia Current Visit: Yes Status: Acute Plan: Patient is not doing well at count is declining Qualifiers: Pneumonia type: due to unspecified organism Laterality: right (2) Congestive heart failure Current Visit: Yes Status: Acute Plan: Patient has severe congestive heart failure.pressure is slightly low has an apical thrombus/NC/ cultures neg Qualifiers: Heart failure chronicity: unspecified (3) Respiratory failure Current Visit: Yes Status: Acute Plan: P chest x-ray shows bilateral interstitial disease worse patient is on amiodarone contact cardiology Qualifiers: Chronicity: acute on chronic
[2021-05-30] MEDS ORDERED: NA CHLORIDE 0.9% 1,000 ML ONE (15:01)
[2021-05-30] MEDS ORDERED: DIGOXIN 0.25 MG/ML AMP IV ONE (19:00)
[2021-05-30] MEDS ORDERED: DIGOXIN 0.25 MG TABLET ONE ×2 (19:21→19:22)
[2021-05-30] MEDS: SPIRONOLACTONE 25 MG TABLET PO SCH (21:00)
[2021-05-30] MEDS ORDERED: ENOXAPARIN 100 MG/ML SYR SQ ONE (22:22)
[2021-05-30] MEDS: DIGOXIN 0.25 MG/ML AMP IV SCH (23:00)
[2021-05-31] MEDS ORDERED: DIGOXIN 0.25 MG/ML AMP ONE ×2 (00:08→06:40)
[2021-05-31] MEDS: DIGOXIN 0.25 MG/ML AMP IV SCH (05:00)
[2021-05-31 06:04] LABS: ALT/SGPT 23 U/L (12-78); AST/SGOT 26 U/L (15-37); Absolute Lymphocytes (CBC) 1.6 K/uL (0.7-4.9); Albumin 2.1 g/dL (3.4-5.0); Alkaline Phosphatase 74 U/L (45-117); BUN Blood Urea Nitrogen 10 mg/dL (7-18); Basophils % 0.3 % (0-1.3); Bicarbonate 28 mmol/L (21-32); Bilirubin Total 0.4 mg/dL (0.2-1.0); Glucose Level 104 mg/dL (74-106); Hematocrit 26.5 % (39.6-49.0); Lymphocytes % 10.9 % (15.3-44.8); MPV 9.2 fL (7.6-11.3); Phosphorus 2.5 mg/dL (2.5-4.9); Potassium 3.6 mmol/L (3.5-5.1); Protein, Total 5.4 g/dL (6.4-8.2); RBC Red Blood Cell Count 3.16 M/uL (4.33-5.43); Sodium Level 150 mmol/L (136-145)
--- NOTE | 2021-05-31 07:36 | P.PN ---
Date of Service: 05/30/21 Subjective Patient is on BiPAP. Patient's clinical status continues to remain stable. Patient states he feels better. Spoke to thoracic surgery who does not really feel patient is a surgical candidate. Awaiting for medical ICU bed. Still awaiting transfer. Patient may need diagnostic thoracentesis as well as he awaits for transfer. Regardless without surgical intervention prognosis is poor. Have try to get a hold of family as well but have been unsuccessful. They did call appear in told the nursing staff to give them my phone number to contact me. 05/28 Spoke to transfer center and hospitalist had accepted. Spoke to thoracic surgeon who stated that he was not really sure if patient was a surgical candidate. Concern that patient's ejection fraction was 25%. Wanted patient to go the medical ICU. We did not hear anything back from [facility] after this. Will contact them again to see what the hold up is. Patient has stayed in atrial fibrillation with rapid ventricular response. On amiodarone drip. Spoke with Cardiology-continue amiodarone drip at this time. Continue anti coagulation for left ventricle apical thrombus. Monitor pulmonary status closely. Long-term prognosis is poor. Patient may not be a surgical candidate at this time. Awaiting possible transfer to tertiary care facility Review of Systems is unable to be obtained Physical Examination - Vital Signs reviewed - Physical Exam General: In no apparent distress, patient awake and alert; cachexia Respiratory: Diminished, Crackles/rales Cardiovascular: Regular rate/rhythm, Normal S1 S2, No murmurs Gastrointestinal: Normal bowel sounds, Soft and benign, Non-distended, No tender ness Musculoskeletal: No clubbing, No swelling, No tenderness Neurological: Sensation intact, Cranial nerves 3-12 intact Assessment & Plan - Problems (Diagnosis) (1) Loculated pleural effusion Current Visit: Yes Status: Acute (2) Atrial fibrillation with rapid ventricular response Current Visit: Yes Status: Acute (3) Congestive heart failure Current Visit: Yes Status: Acute Qualifiers: Heart failure chronicity: unspecified (4) Pneumonia Current Visit: Yes Status: Acute Qualifiers: Pneumonia type: due to unspecified organism Laterality: right (5) Leukocytosis Current Visit: Yes Status: Acute (6) Anemia Current Visit: Yes Status: Acute (7) Hypokalemia Current Visit: Yes Status: Acute (8) Left ventricular apical thrombus Current Visit: Yes Status: Acute (9) Cachexia Current Visit: Yes Status: Acute - Plan Plan: Continue with plan of care as mentioned below 1. mentation is improved. Patient on BiPAP at this time. Oxygenating well. Slowly wean off the BiPAP 2. Patient on digoxin. Amiodarone drip discontinued because of hypotension. 3. Anticoagulation 4. Continue monitoring volume status closely. Gently diurese as long as blood pressure tolerates it 5. Continue antibiotic therapy 6. Awaiting transfer to tertiary care facility 7. Need to increase his diet however patient refusing Dobhoff 8. GI prophylaxis Discharge Plan: Tertiary [facility] Plan to discharge in: Greater than 2 days - Advance Directives Does patient have a Living Will: No Does patient have a Durable POA for Healthcare: No - Code Status/Comfort Care Code Status Assessed: Yes Code Status: Full Code Critical Care: Yes Time Spent Managing PTS Care (In Minutes): 45
--- NOTE | 2021-05-31 07:42 | P.PN ---
Date of Service: 05/31/21 Subjective Awaiting for diagnostic thoracentesis. Hold Lovenox this morning. 05/28 Spoke to transfer center and hospitalist had accepted. Spoke to thoracic surgeon who stated that he was not really sure if patient was a surgical candidate. Concern that patient's ejection fraction was 25%. Wanted patient to go the medical ICU. We did not hear anything back from [facility] after this. Will contact them again to see what the hold up is. Patient has stayed in atrial fibrillation with rapid ventricular response. On amiodarone drip. Spoke with Cardiology-continue amiodarone drip at this time. Continue anti coagulation for left ventricle apical thrombus. Monitor pulmonary status closely. Long-term prognosis is poor. Patient may not be a surgical candidate at this time. Awaiting possible transfer to tertiary care facility Review of Systems is unable to be obtained Physical Examination - Vital Signs reviewed - Physical Exam General: In no apparent distress, patient awake and alert; cachexia Respiratory: Diminished, Crackles/rales Cardiovascular: Regular rate/rhythm, Normal S1 S2, No murmurs Gastrointestinal: Normal bowel sounds, Soft and benign, Non-distended, No tenderness Musculoskeletal: No clubbing, No swelling, No tenderness Neurological: Sensation intact, Cranial nerves 3-12 intact Assessment & Plan - Problems (Diagnosis) (1) Loculated pleural effusion Current Visit: Yes Status: Acute (2) Atrial fibrillation with rapid ventricular response Current Visit: Yes Status: Acute (3) Congestive heart failure Current Visit: Yes Status: Acute Qualifiers: Heart failure chronicity: unspecified (4) Pneumonia Current Visit: Yes Status: Acute Qualifiers: Pneumonia type: due to unspecified organism Laterality: right (5) Leukocytosis Current Visit: Yes Status: Acute (6) Anemia Current Visit: Yes Status: Acute (7) Hypokalemia Current Visit: Yes Status: Acute (8) Left ventricular apical thrombus Current Visit: Yes Status: Acute (9) Cachexia Current Visit: Yes Status: Acute - Plan Plan: Continue with plan of care as mentioned below 1. mentation is improved. Patient on BiPAP at this time. Oxygenating well. Slowly wean off the BiPAP 2. Patient on digoxin. Amiodarone drip discontinued because of hypotension. 3. Anticoagulation 4. Continue monitoring volume status closely. Gently diurese as long as blood pressure tolerates it 5. Continue antibiotic therapy 6. Awaiting transfer to tertiary care facility 7. Need to increase his diet however patient refusing Dobhoff 8. GI prophylaxis Discharge Plan: [facility] Plan to discharge in: Greater than 2 days - Advance Directives Does patient have a Living Will: No Does patient have a Durable POA for Healthcare: No - Code Status/Comfort Care Code Status Assessed: Yes Code Status: Full Code Critical Care: Yes Time Spent Managing PTS Care (In Minutes): 45
[2021-05-31] MEDS ORDERED: D5W 1,000 ML IV SCH (08:00)
[2021-05-31] MEDS: ENSURE ENLIVE 237 ML CAN PO SCH ×3 (09:00→21:00)
[2021-05-31] MEDS ORDERED: DIGOXIN 0.25 MG TABLET PO SCH (09:00)
[2021-05-31] MEDS: ATORVASTATIN 40 MG TAB PO SCH (09:42)
[2021-05-31] MEDS: FOLIC ACID 1 MG TABLET PO SCH ×2 (09:42→21:00)
[2021-05-31] MEDS: THIAMINE HCL 100 MG TABLET PO SCH (09:42)
[2021-05-31] MEDS: TAMSULOSIN 0.4 MG SR CAP PO SCH (09:42)
[2021-05-31] MEDS: FAMOTIDINE 20 MG TAB PO SCH ×2 (09:42→21:00)
[2021-05-31] MEDS: ASCORBIC ACID 500 MG TABLET PO SCH (09:42)
[2021-05-31] MEDS: POTASSIUM 25 MEQ EFFERV TAB PO SCH ×2 (09:42→21:00)
[2021-05-31] MEDS: CEFEPIME 1 GM/100 ML BAG IV SCH ×2 (09:43→20:56)
[2021-05-31] MEDS: AMIODARONE HCL 200 MG TAB PO SCH ×2 (09:51→21:00)
[2021-05-31] MEDS: SPIRONOLACTONE 25 MG TABLET PO SCH ×2 (09:51→21:00)
[2021-05-31] MEDS: ENOXAPARIN 60 MG/0.6 ML SQ SCH ×2 (09:51→21:00)
[2021-05-31] MEDS ORDERED: ASCORBIC ACID 500 MG TABLET ONE (09:57)
[2021-05-31] MEDS ORDERED: FOLIC ACID 1 MG TABLET ONE ×2 (09:58→21:02)
[2021-05-31] MEDS ORDERED: FAMOTIDINE 20 MG TAB ONE ×2 (09:58→21:30)
[2021-05-31] MEDS ORDERED: TAMSULOSIN 0.4 MG SR CAP ONE (09:58)
[2021-05-31] MEDS ORDERED: THIAMINE HCL 100 MG TABLET ONE (09:58)
[2021-05-31] MEDS ORDERED: POTASSIUM 25 MEQ EFFERV TAB ONE ×2 (09:58→21:30)
[2021-05-31] MEDS ORDERED: ENOXAPARIN 60 MG/0.6 ML SQ ONE ×2 (09:59→21:03)
[2021-05-31] MEDS ORDERED: AMIODARONE HCL 200 MG TAB ONE ×2 (10:12→21:01)
[2021-05-31] MEDS ORDERED: SPIRONOLACTONE 25 MG TABLET ONE ×2 (10:14→22:28)
[2021-05-31] MEDS: D5 0.45 NS 1,000 ML IV SCH ×2 (11:13→22:20)
[2021-05-31] MEDS ORDERED: D5 0.45 NS 1,000 ML IV ONE ×2 (11:28→23:58)
[2021-05-31] MEDS ORDERED: CEFEPIME 1 GM/VIAL ONE (21:01)
[2021-05-31] MEDS ORDERED: FAMOTIDINE 20 MG/2 ML VIAL IV ONE (21:02)
[2021-05-31] MEDS ORDERED: NA CHLORIDE 0.9% 100 ML ONE (21:06)
[2021-06-01 06:18] LABS: Absolute Lymphocytes (CBC) 1.8 K/uL (0.7-4.9); Basophils % 0.4 % (0-1.3); Hematocrit 27.6 % (39.6-49.0); Lymphocytes % 12.2 % (15.3-44.8); MPV 8.7 fL (7.6-11.3); RBC Red Blood Cell Count 3.28 M/uL (4.33-5.43)
[2021-06-01 06:31] LABS: ALT/SGPT 25 U/L (12-78); AST/SGOT 28 U/L (15-37); Alkaline Phosphatase 74 U/L (45-117); BUN Blood Urea Nitrogen 8 mg/dL (7-18); Bicarbonate 31 mmol/L (21-32); Bilirubin Total 0.4 mg/dL (0.2-1.0); Glucose Level 113 mg/dL (74-106); Phosphorus 2.6 mg/dL (2.5-4.9); Potassium 3.5 mmol/L (3.5-5.1); Protein, Total 5.7 g/dL (6.4-8.2); Sodium Level 151 mmol/L (136-145)
[2021-06-01] MEDS: ENSURE ENLIVE 237 ML CAN PO SCH ×4 (09:00→21:00)
[2021-06-01] MEDS: POTASSIUM 25 MEQ EFFERV TAB PO SCH ×3 (09:00→21:00)
--- NOTE | 2021-06-01 09:04 | RAD REPORT ---
EXAM DESCRIPTION: RAD - Chest Single View - 06/01/2021 6:33 am CLINICAL HISTORY: Respiratory failure Chest pain. COMPARISON: Chest Single View dated 05/29/2021; Chest Single View dated 05/27/2021; Chest Single View dated 05/26/2021; Chest Single View dated 05/25/2021 FINDINGS: Portable technique limits examination quality. Extensive bilateral pulmonary opacities are present without significant change since 05/29/2021. The heart is mildly enlarged in size. Right-sided PICC line is stable in position.
[2021-06-01] MEDS: FAMOTIDINE 20 MG TAB PO SCH ×2 (09:49→21:00)
[2021-06-01] MEDS: AMIODARONE HCL 200 MG TAB PO SCH ×2 (09:49→21:00)
[2021-06-01] MEDS: CEFEPIME 1 GM/100 ML BAG IV SCH (09:50)
[2021-06-01] MEDS ORDERED: FAMOTIDINE 20 MG TAB ONE ×2 (10:06→22:30)
[2021-06-01] MEDS ORDERED: AMIODARONE HCL 200 MG TAB ONE ×2 (10:06→22:30)
[2021-06-01] MEDS: TAMSULOSIN 0.4 MG SR CAP PO SCH (10:57)
[2021-06-01] MEDS: FOLIC ACID 1 MG TABLET PO SCH ×2 (10:57→21:00)
[2021-06-01] MEDS: THIAMINE HCL 100 MG TABLET PO SCH (10:57)
[2021-06-01] MEDS: ASCORBIC ACID 500 MG TABLET PO SCH (10:57)
[2021-06-01] MEDS: ATORVASTATIN 40 MG TAB PO SCH (10:58)
[2021-06-01] MEDS: SPIRONOLACTONE 25 MG TABLET PO SCH (10:58)
[2021-06-01] MEDS ORDERED: ASCORBIC ACID 500 MG TABLET ONE (11:05)
[2021-06-01] MEDS ORDERED: FOLIC ACID 1 MG TABLET ONE ×2 (11:05→22:30)
[2021-06-01] MEDS ORDERED: TAMSULOSIN 0.4 MG SR CAP ONE (11:05)
[2021-06-01] MEDS ORDERED: THIAMINE HCL 100 MG TABLET ONE (11:05)
[2021-06-01] MEDS ORDERED: POTASSIUM 25 MEQ EFFERV TAB ONE (11:05)
[2021-06-01] MEDS ORDERED: SPIRONOLACTONE 25 MG TABLET ONE (11:07)
[2021-06-01] MEDS ORDERED: ATORVASTATIN 40 MG TAB ONE (11:07)
[2021-06-01] MEDS: D5 0.45 NS 1,000 ML IV SCH (11:40)
[2021-06-01] MEDS: D5W 1,000 ML IV SCH (13:30)
--- NOTE | 2021-06-01 13:38 | P.PN ---
Subjective Date of Service: 06/01/21 Primary Care Provider: None Chief Complaint: Respiratory failure Patient is not doing well in respiratory failure high concentrations of oxygen Review of Systems Respiratory: Shortness of Breath Physical Examination - Vital Signs Temperature: 97.8 F Blood Pressure: 120/61 Pulse: 89 Respirations: 23 Pulse Ox (%): 92 - Physical Exam General: Unresponsive Respiratory: Crackles/rales (Crackles on the right side diminished air entry) Cardiovascular: No edema - Studies Medications List Reviewed: Yes Assessment & Plan - Problems (Diagnosis) (1) Pneumonia Current Visit: Yes Status: Acute Plan: Respiratory failure prognosis poor he is got bilateral interstitial changes presumed ARDS his white count is now stable doubt sepsis patient is refusing Dobbhoff will try to convince him to have TPN hyponatremia changed to D5 water DC spironolactone White count has declined to 14,000 changed to meropenem for possible anaerobic infection in the pleural cavity patient has severe congestive heart failure with a apical thrombus suggest DNR with hospice care Qualifiers: Pneumonia type: due to unspecified organism Laterality: right (2) Congestive heart failure Current Visit: Yes Status: Acute Plan: Patient has severe congestive heart failure.pressure is slightly low has an apical thrombus/NC/ cultures neg Qualifiers: Heart failure chronicity: unspecified (3) Respiratory failure Current Visit: Yes Status: Acute Plan: P chest x-ray shows bilateral interstitial disease worse patient is on amiodarone contact cardiology Qualifiers: Chronicity: acute on chronic Physician Review Additional Text: COVID: negative CXR: COMPARISON: CHEST SINGLE VIEW dated 04/13/2013; CHEST SINGLE VIEW dated 06/27/2010 FINDINGS: Portable technique limits examination quality. Moderate opacification of the right hemithorax is noted likely a combination of airspace consolidation/pneumonia and pleural effusion. The left lung is grossly clear. The heart is upper limit of normal in size. CT scan: COMPARISON: No comparisons FINDINGS: Moderate sized area of airspace consolidation is seen in the right lower lobe with a loculated moderate right pleural effusion, likely representing pneumonia. Emphysema is present in the left lung. The heart size is normal. Small hiatal hernia is present. No pericardial fluid is seen. Diffuse osteopenia is seen with moderate thoracic degenerative changes. Small s tones are present in the right kidney. 14 mm low-density lesion is present in the right lobe liver, nonspecific. All CT scans are performed using dose optimization technique as appropriate and may include automated exposure control or mA/KV adjustment according to patient size. IMPRESSION: Moderate airspace consolidation in the right lower lobe with loculated right pleural effusion likely represents pneumonia. ECHO: MEASUREMENTS (cm) DIASTOLIC (NORMALS) SYSTOLIC (NORMALS) IVSd 1.2 (0.6-1.2) LA Diam 3.3 (1.9-4.0) LVEF 25-30% LVIDd 3.1 (3.5-5.7) LVIDs 2.4 (2.0-3.5) %FS 23% LVPWd 1.3 (0.6-1.2) Ao Diam 2.2 (2.0-3.7) 2 DIMENSIONAL ASSESSMENT: RIGHT ATRIUM: NORMAL LEFT ATRIUM: NORMAL RIGHT VENTRICLE: NORMAL LEFT VENTRICLE: SEVERELY DEPRESSED TRICUSPID VALVE: NORMAL MITRAL VALVE: PULMONIC VALVE: NORMAL AORTIC VALVE: THICKENED, NO PERICARDIAL EFFUSION: NONE AORTIC ROOT: NORMAL LEFT VENTRICULAR WALL MOTION: SEVERE GLOBAL HYPOKINESIS. DOPPLER/COLOR FLOW: SEE BELOW. COMMENTS: SEVERELY DEPRESSED LEFT VENTRICULAR EJECTION FRACTION OF 25-30%. DIASTOLIC DYSFUNCTION. SEVERE GLOBAL HYPOKINESIS. MILD MITRAL REGURGITATION. SMALL APICAL LEFT VENTRICULAR THROMBUS. Chest US: CLINICAL HISTORY: Pleural effusion COMPARISON: CT May 23, 2021 FINDINGS: Small to moderate loculated right pleural effusion IMPRESSION: Small to moderate loculated right pleural effusion Follow up CXR 05-27-2021: COMPARISON: Chest Single View dated 05/26/2021; Chest Single View dated 05/25/2021; Chest Single View dated 05/25/2021; Chest Single View dated 05/23/2021; Thorax Wo Con dated 05/23/2021 FINDINGS: Rotated patient which obscures portions of the chest. The left lung remains clear. The right-sided pleural effusion is again noted but not as well assessed. Right subclavian approach PICC. IMPRESSION: Limited due to rotation. Right-sided pleural effusion with underlying atelectasis and/or consolidation again noted. The left lung remains clear. Physical exam: General: Alert, cooperative. Currently on BiPAP. HEENT: Atraumatic, Normocephalic, Other (Mucous membranes are dry) Neck: Supple Respiratory: Crackles to the right side Cardiovascular: A. fib, rate controlled Capillary refill: <2 Seconds Gastrointestinal: Normal bowel sounds, Soft and benign Integumentary: Muscle wasting to the upper and lower extremities. 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 Continue IV cefepime and vancomycin. Continue to wean off BiPAP. Pulmonology plans to change heparin drip to Lovenox at 1 mg/kg subcu twice daily. Still awaiting transfer to [facility] to continue further evaluation and treatment for loculated pleural effusion. Case discussed at length with cardiovascular surgery and oral and maxillofacial pathologist the other day. Will discuss with pulmonology here about the possibility of thoracentesis if patient continues to remain in transit for transfer. If no significant improvement in oral nutrition will consider Dobbhoff. Case discussed at length with nurse taking care of patient today. I will turn to service over to the hospitalist team tomorrow. I will plan of care with him. Atrial fibrillation with RVR: Patient remains on IV amiodarone and Lovenox. Continue with above recommendations. 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 Wean off oxygen/BiPAP. Continue with above plan of care. Lasix discontinued by pulmonology Hypomagnesemia: Electrolyte protocol in place. BPH: Continue with medication Hyperlipidemia: Continue medication Severe protein malnutrition: Dietary to address daily needs. Encourage oral intake. If poor oral intake will need to consider Dobbhoff. DVT PPX: Lovenox Code status: Full Discharge Plan: Awaiting transfer to [facility]
[2021-06-01] MEDS ORDERED: Meropenem 500 MG/100 ML BAG IV SCH (13:45)
[2021-06-01] MEDS: Meropenem 1 GM/100 ML BAG IV SCH (14:13)
[2021-06-01] MEDS ORDERED: KCL 20 MEQ/100 mL IVPB 20 MEQ/100 ML BAG IV ONE ×2 (21:00→22:30)
[2021-06-02] MEDS: Meropenem 1 GM/100 ML BAG IV SCH ×2 (02:00→14:00)
[2021-06-02] MEDS ORDERED: D5W 1,000 ML IV ONE ×2 (03:50→16:41)
[2021-06-02] MEDS ORDERED: Meropenem 1000 MG/VIAL IV ONE (03:50)
[2021-06-02] MEDS ORDERED: NA CHLORIDE 0.9% 100 ML ONE (03:51)
[2021-06-02 04:55] LABS: BUN Blood Urea Nitrogen 7 mg/dL (7-18); Bicarbonate 29 mmol/L (21-32); Glucose Level 111 mg/dL (74-106); Magnesium 1.9 mg/dL (1.8-2.4); Phosphorus 2.4 mg/dL (2.5-4.9); Potassium 3.1 mmol/L (3.5-5.1); Sodium Level 150 mmol/L (136-145)
[2021-06-02] MEDS ORDERED: KCL 20 MEQ/100 mL IVPB 20 MEQ/100 ML BAG IV SCH (07:00)
[2021-06-02] MEDS ORDERED: KCL 20 MEQ/100 mL IVPB 40 MEQ/200 ML BAG IV ONE (07:15)
[2021-06-02] MEDS ORDERED: AMIODARONE HCL 200 MG TAB ONE (08:55)
[2021-06-02] MEDS ORDERED: TAMSULOSIN 0.4 MG SR CAP ONE (08:55)
[2021-06-02] MEDS ORDERED: FOLIC ACID 1 MG TABLET ONE (08:55)
[2021-06-02] MEDS ORDERED: POTASSIUM 25 MEQ EFFERV TAB ONE (08:56)
[2021-06-02] MEDS ORDERED: ATORVASTATIN 20 MG TAB ONE (08:56)
[2021-06-02] MEDS ORDERED: ASCORBIC ACID 500 MG TABLET ONE (08:57)
[2021-06-02] MEDS ORDERED: FAMOTIDINE 20 MG/2 ML VIAL IV ONE (08:57)
[2021-06-02] MEDS ORDERED: VITAMIN D 1000 UNIT TAB ONE (08:57)
[2021-06-02] MEDS ORDERED: THIAMINE HCL 100 MG TABLET ONE (08:58)
[2021-06-02] MEDS: ATORVASTATIN 40 MG TAB PO SCH (09:00)
[2021-06-02] MEDS: POTASSIUM 25 MEQ EFFERV TAB PO SCH (09:00)
[2021-06-02] MEDS: FAMOTIDINE 20 MG TAB PO SCH (09:00)
[2021-06-02] MEDS: FOLIC ACID 1 MG TABLET PO SCH (09:00)
[2021-06-02] MEDS: ENSURE ENLIVE 237 ML CAN PO SCH ×2 (09:00→14:00)
[2021-06-02] MEDS: TAMSULOSIN 0.4 MG SR CAP PO SCH (09:00)
[2021-06-02] MEDS: THIAMINE HCL 100 MG TABLET PO SCH (09:00)
[2021-06-02] MEDS: AMIODARONE HCL 200 MG TAB PO SCH (09:00)
[2021-06-02] MEDS: ASCORBIC ACID 500 MG TABLET PO SCH (09:00)
[2021-06-02 09:27] VITALS: O2SAT 91
[2021-06-02] MEDS: D5W 1,000 ML IV SCH ×2 (10:00)
--- NOTE | 2021-06-02 11:16 | P.PN ---
Date of Service: 06/01/21 Subjective Spoke with Pulmonary and did not would recommend doing thoracentesis. Continue with broad-spectrum antibiotic coverage. Patient prognosis is poor. Concern for empyema and the need for fluid removal as it could be purulent. Unable to get patient transfer to a tertiary care facility. Patient clinical status continues to deteriorate anticipate him not doing well. Unable to get a hold of any family. Have told the nurses to give them my cell phone number so I can talk to them. Have employment case manager and social workers trying to assisting getting information for family contact. Prognosis is poor. Patient does want everything done. Did explain to him that he may benefit from hospice care but he stated that he was going to live. He is confused slightly and does not really give me the most competence on understanding exactly was going on. However, there is no family member to assist us in making decisions at this time. 05/28 Spoke to transfer center and hospitalist had accepted. Spoke to thoracic surgeon who stated that he was not really sure if patient was a surgical candidate. Concern that patient's ejection fraction was 25%. Wanted patient to go the medical ICU. We did not hear anything back from [facility] after this. Will contact them again to see what the hold up is. Patient has stayed in atrial fibrillation with rapid ventricular response. On amiodarone drip. Spoke with Cardiology-continue amiodarone drip at this time. Continue anti coagulation for left ventricle apical thrombus. Monitor pulmonary status closely. Long-term prognosis is poor. Patient may not be a surgical candidate at this time. Awaiting possible transfer to tertiary care facility Review of Systems is unable to be obtained Physical Examination - Vital Signs reviewed - Physical Exam General: In no apparent distress, patient awake and alert to person and place but not to time; cachexia Respiratory: Diminished, Crackles/rales Cardiovascular: Regular rate/rhythm, Normal S1 S2, No murmurs Gastrointestinal: Normal bowel sounds, Soft and benign, Non-distended, No tenderness Musculoskeletal: No clubbing, No swelling, No tenderness Neurological: Sensation intact, Cranial nerves 3-12 intact Assessment & Plan - Problems (Diagnosis) (1) Loculated pleural effusion Current Visit: Yes Status: Acute (2) Atrial fibrillation with rapid ventricular response Current Visit: Yes Status: Acute (3) Congestive heart failure Current Visit: Yes Status: Acute Qualifiers: Heart failure chronicity: unspecified (4) Pneumonia Current Visit: Yes Status: Acute Qualifiers: Pneumonia type: due to unspecified organism Laterality: right (5) Leukocytosis Current Visit: Yes Status: Acute (6) Anemia Current Visit: Yes Status: Acute (7) Hypokalemia Current Visit: Yes Status: Acute (8) Left ventricular apical thrombus Current Visit: Yes Status: Acute (9) Cachexia Current Visit: Yes Status: Acute - Plan Plan: Continue with plan of care as mentioned below 1. mentation is improved. Patient on BiPAP at this time. Oxygen requirements have worsened once again. Thoracenteses canceled per Pulmonary recommendation. Prognosis is poor but patient wants to stay alive from conversation with him. 2. Patient on digoxin. Amiodarone drip discontinued because of hypotension. 3. Anticoagulation 4. Continue monitoring volume status closely. Gently diurese as long as blood pressure tolerates it 5. Continue antibiotic therapy 6. Awaiting transfer to tertiary care facility; will attempt to transfer to other facilities as well. 7. Need to increase his diet however patient refusing Dobhoff 8. GI prophylaxis Discharge Plan: [facility] Plan to discharge in: Greater than 2 days - Advance Directives Does patient have a Living Will: No Does patient have a Durable POA for Healthcare: No - Code Status/Comfort Care Code Status Assessed: Yes Code Status: Full Code Critical Care: Yes Time Spent Managing PTS Care (In Minutes): 45
[2021-06-02 17:28] VITALS: TEMP 97.8
[2021-06-02 18:18] LABS: Arterial Blood Carboxyhemoglob 1.1 % (0-1.5); Blood Gas Oxyhemoglobin 85.6 % (94-97); Blood O2 Saturation 87.4 % (92-98.5)
[2021-06-02] MEDS ORDERED: HYDROCORTISONE SUC 100 MG INJ IV ONE (18:33)
[2021-06-02] MEDS ORDERED: RSI MEDICATION KIT IV ONE ×2 (18:57→20:32)
[2021-06-02] MEDS ORDERED: NOREPINEPHRINE 4 MG in D5W 250 ML IV SCH (19:00)
[2021-06-02] MEDS ORDERED: HYDROCORTISONE SUC 100 MG INJ ONE (19:01)
[2021-06-02] MEDS ORDERED: WATER FOR INJ,STERILE 10 ML ONE (19:01)
[2021-06-02] MEDS ORDERED: NOREPINEPHRINE 4mg/D5W 250mL 4 MG/250 ML BAG IV ONE (19:01)
[2021-06-02 20:57] VITALS: BP 118/68
[2021-06-02] MEDS ORDERED: ETOMIDATE 20 MG/10 ML VIAL IV ONE (20:59)
[2021-06-02] MEDS ORDERED: SUCCINYLCHOLINE 20 MG/ML (10 ML) IV ONE (20:59)
[2021-06-07] MEDS ORDERED: HYDROCODONE/APAP 10/325 TAB ONE (10:23)
--- NOTE | 2021-06-11 14:58 | P.DS ---
Discharge Date: 06/02/21 Primary Care Provider: None Disposition: DC/TX TO ANOTHER FOR OP CARE Discharge Condition: FAIR Reason for Admission: Respiratory failure - Problems (1) Loculated pleural effusion Status: Acute (2) Atrial fibrillation with rapid ventricular response Status: Acute (3) Congestive heart failure Status: Acute Qualifiers: Heart failure chronicity: unspecified (4) Pneumonia Status: Acute Qualifiers: Pneumonia type: due to unspecified organism Laterality: right (5) Leukocytosis Status: Acute (6) Anemia Status: Acute (7) Hypokalemia Status: Acute (8) Left ventricular apical thrombus Status: Acute (9) Cachexia Status: Acute Brief History of Present Illness: Patient is an 81-year-old male with GERD, hyperlipidemia, possibly CHF presents emergency department for shortness of breath. Patient reports that he lives at home with a caregiver who is concerned about his well-being and had him transported to the emergency department. Patient was hypoxic upon arrival to the emergency department with saturations around 88% on room air and tachycardic with heart rate around 131 and blood pressure of 107/58. Patient was given 30 cc/kg fluid bolus, vital signs improved with heart rate currently 93 blood pressure 112/66. Labs were significant for white blood cell count 40.8 hemoglobin 12.4 hematocrit 38.1 lactic acid 3.8 magnesium 1.5T bili 1.2D bili 0.7 BNP 1497 procalcitonin 4.15 Covid test pending chest x-ray demonstrated moderate opacification of the right hemithorax noted likely combination of airspace consolidation/pneumonia and pleural effusion left lung grossly clear heart upper limit of normal in size, CT without contrast of the chest demonstrated moderate airspace consolidation in the right lower lobe with loculated right pleural effusion likely represents pneumonia. Case was discussed with pulmonology recommends for aggressive treatment with IV antibiotics, blood cultures and sputum cultures to be ordered and patient be admitted for further evaluation and management of severe sepsis, pneumonia. Patient oriented x2, not able to tell me the year but seems to be aware of what is going on, reports that he has no family in the area only his caregiver, unable to reach caregiver at this time. Patient wishes for full code. Hospital Course: Patient's clinical status worsened throughout his hospitalization. Patient was requiring BiPAP support as his oxygenation slowly worsened. Patient had diffuse inflammation on his x-ray. Multiple infiltrates were noted. It appear patient had a loculated pleural effusion. We spoke to [facility] and they recommended chest tube placement. However, because we did not have ability to do a VATS procedure decision was made to transfer to [facility]. Patient was accepted and we proceeded with transferring. Vital Signs/Physical Exam: Temp Pulse Resp BP Pulse Ox 97.8 F 99 H 28 H 118/68 88 L 06/02/21 20:40 06/02/21 20:40 06/02/21 20:40 06/02/21 20:40 06/02/21 20:40 General: Alert, In no apparent distress, Oriented x3 Laboratory Data at Discharge: WBC 14.40 K/uL (4.3-10.9) H 06/01/21 05:46 Hgb 9.2 g/dL (13.6-17.9) L 06/01/21 05:46 Hct 27.6 % (39.6-49.0) L 06/01/21 05:46 Plt Count 438 K/uL (152-406) H 06/01/21 05:46 PT 14.0 SECONDS (9.5-12.5) H 05/25/21 19:52 INR 1.21 05/25/21 19:52 APTT Cancelled 05/27/21 13:05 Sodium 150 mmol/L (136-145) H 06/02/21 04:07 Potassium 3.9 mmol/L (3.5-5.1) 06/02/21 11:17 BUN 7 mg/dL (7-18) 06/02/21 04:07 Creatinine 0.40 mg/dL (0.55-1.3) L 06/02/21 04:07 Glucose 111 mg/dL (74-106) H 06/02/21 04:07 Phosphorus 2.4 mg/dL (2.5-4.9) L 06/02/21 04:07 Magnesium 1.9 mg/dL (1.8-2.4) 06/02/21 04:07 Total Bilirubin 0.4 mg/dL (0.2-1.0) 06/01/21 05:46 AST 28 U/L (15-37) 06/01/21 05:46 ALT 25 U/L (12-78) 06/01/21 05:46 Alkaline Phosphatase 74 U/L (45-117) 06/01/21 05:46 Triglycerides 77 mg/dL (<150) 05/24/21 02:58 Cholesterol 73 mg/dL (<200) 05/24/21 02:58 HDL Cholesterol 24 mg/dL (40-60) L 05/24/21 02:58 Cholesterol/HDL Ratio 3.04 05/24/21 02:58 Home Medications: Atorvastatin Calcium 40 mg PO DAILY 07/29/19 Tamsulosin HCl 0.4 mg PO DAILY 07/29/19 Ascorbic Acid [Vitamin C] 500 mg PO DAILY 05/25/21 Aspirin 325 mg PO DAILY 05/25/21 Ferrous Sulfate [Iron] 325 mg PO DAILY 05/25/21 Furosemide 20 mg PO BID 05/25/21 Omeprazole [Prilosec] 40 mg PO DAILY 05/25/21 Physician Discharge Instructions: Transfer to [facility] Diet: AHA Activity: Fall precautions Followup: POOL LANZA [Primary Care Provider] - Time spent managing pt's care (in minutes): 35
[2021-06-14] MEDS ORDERED: dexAMETHasone 10 MG/ML VIAL ONE (18:42)
== END 2021-06-02 21:00 | disposition home or self-care (01) | DRG 871 ==
LOC: ER 16:56 → ERHOLD 20:58 → 2ND 22:19 → ERHOLD 23:08
PROVIDERS: ADMIT Family Medicine; ATTEND Family Medicine
PROC: 02H633Z Insertion of Infusion Device into Right Atrium, Percutaneous Approach (ICD-10-PCS; principal; 2021-05-25)
DX: A41.9 Sepsis, unspecified organism (principal); J18.9 Pneumonia, unspecified organism; I50.33 Acute on chronic diastolic (congestive) heart failure; E43 Unspecified severe protein-calorie malnutrition; J96.01 Acute respiratory failure with hypoxia; J91.8 Pleural effusion in other conditions classified elsewhere; R64 Cachexia; Z68.1 Body mass index [BMI] 19.9 or less, adult; R65.20 Severe sepsis without septic shock; E87.6 Hypokalemia; I48.91 Unspecified atrial fibrillation; D64.9 Anemia, unspecified; I51.3 Intracardiac thrombosis, not elsewhere classified; I11.0 Hypertensive heart disease with heart failure; E83.42 Hypomagnesemia; N40.0 Benign prostatic hyperplasia without lower urinary tract symptoms; E78.5 Hyperlipidemia, unspecified; Z20.822 Contact with and (suspected) exposure to COVID-19
CPT/HCPCS: 36415; 36569; 51702; 71045; 71046; 71250; 76604; 80048; 80053; 80061; 80076; 80202; 81003; 81015; 82805; 83605; 83735; 83880; 84100; 84132; 84145; 84439; 84443; 84484; 85025; 85610; 85730; 87040; 93005; 93306; 94002; 94003; 94010; 94660; 99285; J0282; J0330; J0692; J1160; J1170; J1644; J1650; J1720; J1940; J2185; J3010; J3370; J3475; J3480; J7030; J7040; J7050; J7060; J7120; J7799; P9047; Q2035; U0003